=== PATIENT | female | born 1995 | race Caucasian/White ===

== ENCOUNTER 2022-03-02 16:18 | Outpatient (REF) | payer BC, SELFPAY ==
[2022-03-02 21:39] LABS: HCT 44.3 % (36.0-46.0); HGB 13.5 g/dL (11.2-15.7); MCHC 30.5 % (32.0-36.0); MCV 82 fL (80-95); MPV 9.8 fL (8.0-11.0); Platelet Count 367 10^3/uL (130-400); RDW-SD 41.7 fL; WBC 10.49 10^3/uL (4.4-10.8)
[2022-03-02 22:00] LABS: ALT 27 U/L (14-59); AST 26 U/L (15-37); Alkaline Phosphatase 82 U/L (46-116); Anion Gap 6.9 mmol/L (3-11); BUN 11 mg/dL (7-18); Bilirubin, Total 0.2 mg/dL (0.2-1.0); CO2 32.1 mmol/L (21.0-32.0); CREATININE 0.8 mg/dL (0.55-1.02); Calcium 9.1 mg/dL (8.5-10.1); Calculated LDL 127 mg/dL (<100); Chloride 102 mmol/L (98-107); Cholesterol 209 mg/dL (<200); Estimated GFR 104.15 (mL/min/1.73m2); Glucose 92 mg/dL (74-106); HDL Cholesterol 42 mg/dL (40-60); Potassium 3.8 mmol/L (3.5-5.1); Sodium 141 mmol/L (136-145); TSH (W/Ref FT4) 1.45 uIU/mL (0.36-3.74); Total Protein 8.6 g/dL (6.4-8.2); Triglyceride 201 mg/dL (<150)
[2022-03-02 22:30] LABS: Hemoglobin A1C 5.9 % (<5.7)
== END 2022-03-02 16:19 | disposition home or self-care (01) ==
LOC: NCHCN 16:18
PROVIDERS: Visit Provider Registered Nurse
DX: F41.8 Other specified anxiety disorders (principal); F32.89 Other specified depressive episodes; R53.83 Other fatigue; E66.8 Other obesity; R79.89 Other specified abnormal findings of blood chemistry; E55.9 Vitamin D deficiency, unspecified
CPT/HCPCS: 80053; 80061; 82306; 85027; 83036; 84443

== ENCOUNTER 2022-06-22 15:31 | Outpatient (REF) | payer BC, SELFPAY ==
--- OUTSIDE RECORDS SUMMARY | 2022-06-22 15:33 | XMS_ITS | CCD ---
Author Name Unknown Address [address] [place] [address] [id number] Organization Unknown Address [address] [place] [address] [id number] Care Team Providers Care Tugboat Dispatcher Name Role Phone SHLOMO PATEL Attending Physician [phone] NEREIDA GALARZA Er Physician 3 [phone] ALONZO Guadarrama Registered Nurse [phone] Vital Signs Vital Sign Value Unit Date/Time Recent/Initial ? BMI (Body Mass Index) 53.52 kg/m^2 02/27/2021 19: 42 Initial VS Weight Measured 265 lbs 02/27/2021 19:42 Ini tial VS Height 59 in 02/27/2021 19:42 Initial VS BSA (Body Surface Area) 2.24 m^2 02/27/2021 1 9:42 Initial VS BP Systolic 177 mmHg 02/27/2021 19:42 Initial VS BP Diastolic 101 mmHg 02/27/2021 19:42 Initia l VS Respiratory Rate 18 bpm 02/27/2021 19:42 In itial VS Heart Rate 119 bpm 02/27/2021 19:42 Initial VS O2 % BldC Oximetry 93 % 02/27/2021 19:42 Initial VS Body Temperature 36.3 degrees 02/27/2021 19:42 In itial VS Allergies Allergy Code Allergy Type Reaction Status CEFAZOLIN 2180 Drug allergy Active Procedures Unknown or Not Available. History of Immunizations Unknown or Not Available. Problems Unknown or Not Available. Results Unknown or Not Available. Active Medications Medications Administered During Visit Medication Dose Units Frequency Route Date/Time of Last Dose ER-HYDROCODONE/ACET 6 PACK: 5MG/325MG 5 EA PRN Q6H PO 02/27/2021 20:1 9 Encounters Encounter Diagnosis Diagnosis Code Start Date Lower back injury [id number] 02/27/2021 Social History Smoking Status Code Start Date End Date Never smoker [id number] Patient Decision Aids Unknown or Not Available. Discharge Instructions You were admitted to [facility] on 02/27/2021 19:26 with a principal diagnosis of Unspecified injury of lower back, initial encounter You were discharged from [facility] on 02/27/2021 20:24 Should you have any questions prior to discharge, please contact a member of your healthcare team. If you have left the hospital and have any questions, please contact your primary care physician. Chief Complaint and Reason For Visit Chief Complaint Date of Onset TAILBONE INJURY Function Status Unknown or Not Available. Plan of Care Unknown or Not Available. Referral/Transition of Care Unknown or Not Available.
--- OUTSIDE RECORDS SUMMARY | 2022-06-22 15:33 | XMS_ITS | CCD ---
Author Name Unknown Address [address] [place] [address] [id number] Organization Unknown Address [address] [place] [address] [id number] Care Team Providers Care Parachute Folder Name Role Phone GASTON BEASLEY Attending Physician [phone] Vital Signs Unknown or Not Available. Allergies Allergy Code Allergy Type Reaction Status CEFAZOLIN 2180 Drug allergy Active Procedures Unknown or Not Available. History of Immunizations Unknown or Not Available. Problems Unknown or Not Available. Results Unknown or Not Available. Active Medications Unknown or Not Available. Medications Administered During Visit Unknown or Not Available. Encounters Encounter Diagnosis Diagnosis Code Start Date Snoring [id number] 06/01/2022 Social History Smoking Status Code Start Date End Date Never smoker [id number] Patient Decision Aids Unknown or Not Available. Discharge Instructions You were admitted to [facility] on 06/01/2022 10:06 with a principal diagnosis of Snoring You were discharged from [facility] on 06/01/2022 10:06 Should you have any questions prior to discharge, please contact a member of your healthcare team. If you have left the hospital and have any questions, please contact your primary care physician. Chief Complaint and Reason For Visit Unknown or Not Available. Function Status Unknown or Not Available. Plan of Care Unknown or Not Available. Referral/Transition of Care Unknown or Not Available.
--- OUTSIDE RECORDS SUMMARY | 2022-06-22 15:33 | XMS_ITS | Continuity of Care Document ---
Author Name [facility] Address [address] [place] [address] Organization [facility] Address [address] [place] [address] Care Team Providers Care Swiss Type Screw Machine Operator Name Role Phone PCP, Not Given Primary Care Physician Unavailab le Allergies, Adverse Reactions, Alerts Allergen Type Severity Reaction Last Updated Verified Status cefazolin Allergy vomiting March 12, 2018 Y Act julee Medications Active Medications Medication Dose Units Route Sig Qty Days Start Date St atus Sertraline December 17 18 Active Spironolactone December Active Discontinued Medications Medication Dose Units Route Sig Qty Days Start Date Di scontinued Date Status Amoxicillin-Po t Clavulanate 1 TAB ORAL TWICE A DAY 30 12March 12, 2018 March 22, 2018 Discontinued Problem List Inactive/Resolved Problems Medical Problem Onset Date Status Acute maxillary sinusitis Inacti ve Concussion Inactive Procedures No known history of procedures. Relevant Diagnostic Tests and/or Laboratory Data No known relevant diagnostic tests, laboratory data, and/or discharge summary. Advance Directives Advance Directive Response Recorded Date/ Time Do we have a copy on file here at [facility]? No December 17, 2017 2:06pm Does patient have an Advanced Directive? No December 17, 2017 2:06pm Pt has a Living Will? No December 17, 2017 2:06pm Pt has a Power of Manager Concrete? No Deco 2017 2:06pm Hospital Discharge Instructions Additional Discharge Instructions -Take antibiotic twice a day for 10 days. -Continue nasal mist/spray for comfort. -Continue humidifier. -Sudafed as needed for congestion. -Take probiotic or eat yogurt to help re-establish healthy bacteria in GI tract. -If no improvement following antibiotic, please see PCP as you may need ENT referral for chronic sinusitis. Instruction/Education Provided Sinusitis , Adult (DC) Hospital Discharge Medications Medication Dose Units Route Sig Qty Days Order Date Status Ins tructions Sertraline Octob er 2017 Active Spironolactone O ctober 2017 Active Amoxicillin-Pot Clavulanate 1 TAB ORAL TWICE A DAY 20 10 March 12, 2018 Discontinued Encounters Encounter Facility Location Admit/Visit Date Discharge/Departure Date Attending Provider Departed Emergency [facility] March 12, 2018 9:10am March 12, 2018 9:46am Departed Emergency [facility] December 17, 2017 2:01pm December 17, 2017 2:37pm Functional Status No known functional status. Immunizations No known immunizations. Payers Payer Name Policy Type Covered Green Party Covered Green Party Id Relationship Subscriber Subscriber Id COMM UNLISTED INSURANCE Commercial JOSÉ DENNIS [id number] Self/Same as Patient JOSÉ DENNIS [id number] [facility] Commercial [id number] Self/Same as Patient [id number] SELF PAY Personal Plan of Care Instructions Sinusitis, Adult (DC) Social History Query Response Start Date Stop Date Smoking Status Never smoker Vital Signs Vital Reading Result Reference Range Collection Date/Time Height 5 ft March 12 9:15am Weight 113.398 kg March 12 9:15am Temperature 97.8 F 97.6 F-99.6 F March 12 018 9:15am Pulse 92 BPM 60-100 March 12 9:15am Respiration 18 RPM 12-24 March 12 9:15am Pulse Oximetry 99 % 95-100 March 12, 2018 9:15am Blood Pressure Systolic 102 100-140 Dece mb2017 9:15am Blood Pressure Diastolic 78 50-85 Dec 2017 9:15am Body Mass Index 48.8 March 12, 2018 9:15am
--- OUTSIDE RECORDS SUMMARY | 2022-06-22 15:33 | XMS_ITS | Continuity of Care Document ---
Author Name Unknown Address [address] [place] [address] Phone Organization [facility] Address [address] [place] [address] Phone Care Team Providers Care Porter Marina Name Role Phone PCP, Not Given Primary Care Provider Unavailabl e Allergies, Adverse Reactions, Alerts Allergen Type Severity Reaction Last Updated Verified Status cefazolin Allergy vomiting September 10, 2019 12:39pm Yes Active cefprozil Adverse Reaction Unknown September 10, 2019 12:39 pm Yes Active Medications Medication Status Dose Units Route Sig Qty Days Start Date End Date Instructions Sertraline Active TABLET Octobe r 2017 2:11pm Spironolactone Active TABLET Oc tober 2017 2:11pm Amoxicillin-Po t Clavulanate Discontinu ed 1 TAB PO TWICE A DAY 20 March 12, 2018 9:32am March 22, 2018 12:04am Buspirone Active MG TABLET September 10, 2019 12:39pm Omeprazole Active September 10, 2019 12:39pm Amoxicillin-Po t Clavulanate Discontinu ed 1 TAB PO TWICE A DAY 20 April 05, 2018 5:56pm Februar y 2018 12:05am Problems Active Problems Medical Problem Onset Date Status Urinary tract infection December 20, 2013 Activ e Hearing loss secondary to cerumen impaction Active Inactive/Resolved Problems Medical Problem Onset Date Status Acute maxillary sinusitis Resolv ed Concussion Resolved Pyelonephritis Resolved Advance Directives Advance Directive Response Recorded Date/ Time Does patient have an Advanced Directive? No December 17, 2017 2:06pm Do we have a copy on file here at [facility]? No December 17, 2017 2:06pm Pt has a Living Will? No December 2:06pm Do we have a copy on file here at [facility]? No December 17, 2017 2:06pm Pt has a Power of Nail Maker? No Octo 2017 2:06pm Do we have a copy on file here at [facility]? No December 17, 2017 2:06pm Encounters Encounter Location(s) Arrival/Admit Date Discharge/Depart Date Provider(s) Departed Emergency [facility] Urgent [facility] September 10, 2019 12:03pm September 10, 2019 12:54pm null Assessments No Assessments Information Available Functional Status No Functional Status information available Goals Goals may be documented in an alternate section. Mental Status No Mental Status Information Available Medical Equipment No Medical Equipment Information available Insurance Providers Guarantor Mechelle Romero Address [address] [facility] [address] Contact Info. Home Phone: Payer Policy Id Coverage Id Subscriber's Name Subscriber Id Effective Date Expiration Date COMM UNLISTED INSURANCE [id number] MECHELLE ROMERO [id number] [employer] [place] [id number] Mechelle Romero [id number] [facility] [id number] Mechelle Romero [id number] SELF PAY Self N/A Plan of Treatment Future Tests Future scheduled test information is unavailable Pending Tests Pending diagnostic test information is unavailable Future Visits Future appointment information is unavailable Referrals to Other Providers Reason for Referral Referral Start Date Provider Provider Contact Information Provider Address Given Not Future Procedures Future procedure information is unavailable Future Medications Future medication information is unavailable Patient Instructions COVID 19 General Instruction s- decrease the spread of coronavirus ([facility]) Social History Smoking Status Status Date of Observation Never smoked tobacco (finding) August 12:48pm Observation Status Observation Response Date of Response Alcohol Use Yes September 10, 2019 12:48pm alcohol intake frequency a few times a week September 10, 2019 12:48pm substance use type does not use September 09 12:48pm Smoking Status Never smoker September 10, 2019 12:48pm Assigned Sex Female Vital Signs Vital Reading Result Reference Range Collection Date/Time Height 60 [in_i] September 10, 2019 12:39pm Weight 113.39 kg September 10, 2019 12:39pm Body Temperature 98.4 [degF] 97.6-99.6 September 10, 2019 12:39pm Heart Rate 82 /min 60-100 September 10, 2019 12:39pm Respiratory rate 14 /min 12-24 September 10, 2019 12:39pm Oxygen saturation by Pulse oximetry 99 % 95-100 September 10, 2019 12:3 9pm BP Systolic 124 mm[Hg] 100-140 September 10, 2019 12:39pm BP Diastolic 80 mm[Hg] 50-85 September 10, 2019 12:39pm BMI (Body Mass Index) 48.8 kg/m2 August 132019 12:39pm
--- OUTSIDE RECORDS SUMMARY | 2022-06-22 15:33 | XMS_ITS | Continuity of Care Document ---
Author Name [facility] Address [address] [place] [address] Organization [facility] Address [address] [place] [address] Care Team Providers Care Hand Engraver Name Role Phone PCP, Not Given Primary Care Physician Unavailab le Allergies, Adverse Reactions, Alerts Allergen Type Severity Reaction Last Updated Verified Status cefazolin Allergy vomiting April 05, 2018 Y Acti ve Medications Active Medications Medication Dose Units Route Sig Qty Days Start Date St atus Sertraline December 17 18 Active Spironolactone December Active Amoxicillin-Pot Clavulanate 1 TAB ORAL TWICE A DAY 30 12April 05, 2018 Active Discontinued Medications Medication Dose Units Route Sig Qty Days Start Date Di scontinued Date Status Amoxicillin-Po t Clavulanate 1 TAB ORAL TWICE A DAY 30 12March 12, 2018 March 22, 2018 Discontinued Problem List Active Problems Medical Problem Onset Date Status Pyelonephritis Active Inactive/Resolved Problems Medical Problem Onset Date Status Acute maxillary sinusitis Inacti ve Concussion Inactive Procedures No known history of procedures. Relevant Diagnostic Tests and/or Laboratory Data No known relevant diagnostic tests, laboratory data, and/or discharge summary. Advance Directives Advance Directive Response Recorded Date/ Time Do we [place] a copy [place] [facility] No December 17, 2017 2:06pm Does patient have an Advanced Directive? No December 17, 2017 2:06pm Pt has a Living Will? No December 17, 2017 2:06pm Pt has a Power of Box Inspector? No Octo 2017 2:06pm Hospital Discharge Instructions Additional Discharge Instructions Take t he antibiotic as prescribed. Complete the entire course even if feeling better in a few days. Drink plenty of fluids. Ibuprofen/tylenol as needed for discomfort. Warm compresses for discomfort. If worsening or not improving after completing the antibiotic f/u with your PCP or return to clinic. If any acute worsening such as severe pain, fevers, or vomiting go to the emergency room. No Instructions/Education Pr ovided Hospital Discharge Medications Medication Dose Units Route Sig Qty Days Order Date Status Ins tructions Sertraline Octob er 2017 Active Spironolactone O ctober 2017 Active Amoxicillin-Pot Clavulanate 1 TAB ORAL TWICE A DAY 30 12March 12, 2018 Discontinued Amoxicillin-Pot Clavulanate 1 TAB ORAL TWICE A DAY 20 April 05, 2018 Active Encounters Encounter Facility Location Admit/Visit Date Discharge/Departure Date Attending Provider Departed Emergency [facility] April 05, 2018 4:16pm April 05, 2018 6:00pm Departed Emergency [facility] March 12, 2018 9:10am March 12, 2018 9:46am Departed Emergency [facility] December 17, 2017 2:01pm December 17, 2017 2:37pm Functional Status No known functional status. Immunizations No known immunizations. Payers Payer Name Policy Type Covered Green Party Covered Green Party Id Relationship Subscriber Subscriber Id COMM UNLISTED INSURANCE Commercial MECHELLE DENNIS [id number] Self/Same as Patient MECHELLE DENNIS [id number] [employer] Mechelle Dennis [id number] Self/Same as Patient Mechelle Dennis [id number] SELF PAY Personal Plan of Care No Known Plan of Care Information Social History Query Response Start Date Stop Date Smoking Status Never smoker Vital Signs Vital Reading Result Reference Range Collection Date/Time Height 5 ft March 12 9:15am Weight 113.398 kg April 05 9 4:23pm Temperature 97.8 F 97.6 F-99.6 F April 05 4:23pm Pulse 82 BPM 60-100 April 05 4:23pm Respiration 20 RPM -April 05 4:23pm Pulse Oximetry 99 % 95-100 March 12, 2018 9:15am Blood Pressure Systolic 134 100-140 Blair juarez 2018 4:23pm Blood Pressure Diastolic 80 50-85 Brendon uary 2018 4:23pm Body Mass Index 48.8 March 12, 2018 9:15am
--- OUTSIDE RECORDS SUMMARY | 2022-06-22 15:33 | XMS_ITS | Continuity of Care Document ---
Author Name Unknown Organization [facility] Address [address] [place] [address] Phone Care Team Providers Care Financial Management Name Role Phone Jazmyn Barron APRN Unavailable Unavaila ble Allergies, Adverse Reactions, Alerts Substance Reaction Status Criticality cefazolin fever Active No Information Medications Medication Instructions Dosage Effective Dates (start - stop) Status Comments sertraline 100 mg tablet take 2 tablet b y oral route every day for anxiety and depression 200 MG - Active buspirone 10 mg tablet take 2 tablet by oral route every day for anxiety 20 MG - Active hydrochlorothiazide 12.5 mg capsule take 1 capsule by oral route every day 12.5 MG - Active omeprazole 20 mg capsule,delayed release take 1 capsule by oral route every day before a meal - Active Onexton 1.2 % (1 % base)-3.75 % topical gel apply by topical route every day a pea-sized amount to cover areas of face with thin layer 0.00 - Active In place of Benzaclin. Please let me know if another formulation is covered by insurance Omnaris 50 mcg nasal spray spray 2 spray by intranasal route every day in each nostril 100 MCG - Active spironolactone 50 mg tablet take 1 tablet by oral route 2 times every day 50 MG - Active [facility] Ana Allergy 180 mg tablet take 1 tablet by oral route every day 180 MG - Active Procedures Procedure Date Telemed OFFICE/OUTPATIENT VISIT, EST 992 13 Telehealth patient not reached Telehealth patient not reached Telehealth patient not reached 20 Telemed OFFICE/OUTPATIENT VISIT, EST 992 13 OFFICE/OUTPATIENT VISIT, EST Psychotherapy, 30 Minutes W/ E&m 2019 OFFICE/OUTPATIENT VISIT, EST Psychotherapy, 30 Minutes W/ E&m 2018 OFFICE/OUTPATIENT VISIT, EST Psychotherapy, 30 Minutes W/ E&m 2018 Offic/outpt E&m Estab Low-mod 9 Psychotherapy, 30 Minutes W/ E&m 2018 Offic/outpt E&m Estab Low-mod 9 Preven Meds E&m Estab Pt; 18-3 19 OFFICE/OUTPATIENT VISIT, EST Routine Venipuncture Transferase; Alanine Amino Transferase; Aspartate Amino Potassium; Serum Sodium; Serum GLYCOSYLATED HEMOGLOBIN TEST Collecton Capillary Blood Spec Routine Venipuncture Urea Nitro; Mitch Creatinine; Bld Electrolyte Panel OFFICE/OUTPATIENT VISIT, EST OFFICE/OUTPATIENT VISIT, EST OFFICE/OUTPATIENT VISIT, EST Offic/outpt E&m Estab Low-mod 8 Psychotherapy, 30 Minutes W/ E&m 2017 Offic/outpt E&m Estab Low-mod 8 Psychotherapy, 30 Minutes W/ E&m 2017 Offic/outpt E&m Estab Low-mod 8 Psychotherapy, 30 Minutes W/ E&m 2017 Offic/outpt E&m Estab Low-mod 8 Psychotherapy, 30 Minutes W/ E&m 2017 OFFICE/OUTPATIENT VISIT, EST Offic/outpt E&m Estab Low-mod 8 Offic/outpt E&m Estab Low-mod 8 Psychotherapy, 30 Minutes W/ E&m 2017 Offic/outpt E&m Estab Low-mod 8 Psychotherapy, 30 Minutes W/ E&m 2017 Offic/outpt E&m Estab Low-mod 7 Offic/outpt E&m Estab Low-mod 7 Psychotherapy, 30 Minutes W/ E&m 2016 Collecton Capillary Blood Spec 17 Glu; Bld Reagent Strip GLYCOSYLATED HEMOGLOBIN TEST OFFICE/OUTPATIENT VISIT, EST THER/PROPH/DIAG INJ, SC/IM Offic/outpt E&m Estab Low-mod 7 Medroxyprogesterone Acetate-1mg 017 Offic/outpt E&m Estab Low-mod 7 Psychotherapy, 30 Minutes W/ E&m 2016 Offic/outpt E&m Estab Low-mod 7 Psychotherapy, 30 Minutes W/ E&m 2016 Immuniz Admin; 1/combo Vacc/to 17 TDAP VACCINE >7 IM Preven Meds E&m Estab Pt; 18-3 17 Glu; Mitch Routine Venipuncture Phosphatase Alkaline Creatinine; Bld Urea Nitro; Mitch Transferase; Aspartate Amino Transferase; Alanine Amino Offic/outpt E&m Estab Low-mod 7 Offic/outpt E&m Estab Low-mod 7 Offic/outpt E&m Estab Low-mod 7 Offic/outpt E&m Estab Low-mod 7 Offic/outpt E&m Estab Low-mod 7 OFFICE/OUTPATIENT VISIT, EST Offic/outpt E&m Estab Low-mod 7 Psychotherapy, 30 Minutes W/ E&m Brendon-16- 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 OFFICE/OUTPATIENT VISIT, EST Agt-immunassay Dir Obs; Strep 6 Cult Bacterial Definit; Other 6 Offic/outpt E&m Estab Low-mod 6 Offic/outpt E&m Estab Low-mod 6 Offic/outpt E&m Estab Low-mod 6 Glu; Mitch Routine Venipuncture Complete Cbc, Automated Thyroid Stim Hormone OFFICE/OUTPATIENT VISIT, EST THER/PROPH/DIAG INJ, SC/IM Medroxyprogesterone Acetate-1mg 016 Offic/outpt E&m Estab Low-mod 6 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 Follow Up THER/PROPH/DIAG INJ, SC/IM Medroxyprogesterone Acetate-1mg 016 Offic/outpt E&m Estab Low-mod 6 Title I Teacher Follow Up Offic/outpt E&m Estab Low-mod 6 Title I Teacher New Patient Offic/outpt E&m Estab Low-mod 6 Psychiatric Diag Eval With Medical Medroxyprogesterone Acetate-1mg 016 THER/PROPH/DIAG INJ, SC/IM Offic/outpt E&m New Low-mod 16 Advance Directives Directive Yes / No Effective Date File Name No Information Encounters Encounter Description Practice Location Reason(s) For Visit Diagnoses Date Provider Providers Copied on Encounter [facility] , [address] [place] [address], [id number], [place] tel:[phone] [facility] No Information 2 Anderson Eldridge. [address] [place] [address], [id number], [place]. tel:[phone] [facility] , [address] [place] [address], [id number], tel:[phone] [facility] No Information 1 Stan Alfonso. [address] [place] [address], [facility], [place]. tel:[phone] [place] [address], [id number], tel:[phone] [facility] No Information 1 Stan Alfonso. [address] [place] [address], [facility], [place]. tel:[phone] [place] [address], [id number], tel:[phone] [facility] anxiety (chief complaint) Anxiety disorder, unspecified 1 Stan Alfonso. [address] [place] [address], [facility], [place]. tel:[phone] [place] [address], [address] [place] [address], tel:[phone] [facility] anxiety (chief complaint) Anxiety disorder, unspecified 1 Stan Alfonso. [address] [place] [address], [facility], [place]. tel:[phone] [place] [address], [address] [place] [address], tel:[phone] [facility] anxiety (chief complaint) Anxiety disorder, unspecified 0 Stan Alfonso. [address] [place] [address], [facility], [place]. tel:[phone] [place] [address], [id number], [place] tel:[phone] [facility] Counseling, unspecified 0 Lucian Pearce. [address] [place] [address], [facility], [place]. tel:[phone] [place] [address], [address] [place] [address], tel:[phone] [facility] No Information 0 Nurse Office. [address] [place] [address], [facility], . tel:[phone] [facility] , [address] [place] [address], [address] [place] [address], tel:[phone] [facility] anxiety (chief complaint) Anxiety disorder, unspecified 0 Stan Alfonso. [address] [place] [address], [facility], . tel:[phone] OFFICE/OUTPA TIENT VISIT, [address], [address] [place] [address], tel:[phone] [facility] anxiety (chief complaint) Anxiety disorder, unspecifiedEp isode of recurrent major depressive disorder, unspecified depression episode severity 0 Stan Alfonso. [address] [place] [address], [facility], . tel:[phone] OFFICE/OUTPA TIENT VISIT, [address], [address] [place] [address], tel:[phone] [facility] anxiety (chief complaint) Anxiety disorder, unspecifiedDe pression, unspecified depression type 9 Stan Alfonso. [address] [place] [address], [facility], . tel:[phone] OFFICE/OUTPA TIENT VISIT, [facility] , [address] [place] [address], [address] [place] [address], tel:[phone] [facility] anxiety (chief complaint) Anxiety disorder, unspecified 9 Stan Alfonso. [address] [place] [address], [facility], . tel:[phone] Offic/outpt E&m Estab Low-[address], [address] [place] [address], tel:[phone] [facility] anxiety (chief complaint) Anxiety disorder, unspecified 9 Stan Alfonso. [address] [place] [address], [facility], . tel:[phone] Offic/outpt E&m Estab Low-mod [facility] , [address] [place] [address], [id number], tel:[phone] [facility] hypertension (chief complaint)obe sity (chief complaint) Essential (primary) hypertensionA cne vulgarisGastr oesophageal reflux disease without esophagitisBo dy mass index (BMI) 50-59.9 , adult 9 [facility]. [address] [place] [address], [facility], . tel:[phone] Preven Meds E&m Estab Pt; 18-[address], [address] [place] [address], tel:[phone] [facility] Preventive exam (chief complaint)aci d reflux (chief complaint)acn e (chief complaint) Encntr for general adult medical exam w/o abnormal findingsFatty liverAcne vulgarisCompu lsive skin pickingHTN (hypertension ), benignDiabete s mellitus screeningGast roesophageal reflux disease without esophagitis 9 [facility]. [address] [place] [address], [facility], . tel:[phone] OFFICE/OUTPA TIENT VISIT, [facility] , [address] [place] [address], [address] [place] [address], [place] tel:[phone] [facility] Sinus symptoms (chief complaint)UTI (chief complaint)sin us symptoms continued (chief complaint) Sinus congestionHTN (hypertension ), benign 9 [facility]. [address] [place] [address], [facility], . tel:[phone] OFFICE/OUTPA TIENT VISIT, [facility] , [address] [place] [address], [address] [place] [address], [place] tel:[phone] [facility] Follow Up of Cold symptoms (chief complaint) Sinus congestion 9 Ciaran Orellana. [address] [place] [address], [facility], [place]. tel:[phone] OFFICE/OUTPA TIENT VISIT, [facility] , [address] [place] [address], [address] [place] [address], tel:[phone] [facility] Cold symptoms (chief complaint) Sinus congestion 9 Lucian Pearce. [address] [place] [address], [facility], [place]. tel:[phone] Offic/outpt E&m [facility] , [address] [place] [address], [address] [place] [address], tel:[phone] [facility] anxiety (chief complaint) Anxiety disorder, unspecified 8 Stan Alfonso. [address] [place] [address], [facility], [place]. tel:[phone] Offic/outpt E&m Estab [facility] , [address] [place] [address], [address] [place] [address], [place] tel:[phone] [facility] anxiety (chief complaint) Anxiety disorder, unspecified 8 Stan Alfonso. [address] [place] [address], [facility], . tel:[phone] Offic/outpt E&m Estab [facility] , [address] [place] [address], [address] [place] [address], [place] tel:[phone] [facility] anxiety (chief complaint) Anxiety disorder, unspecified 8 Stan Alfonso. [address] [place] [address], [facility], [place]. tel:[phone] Offic/outpt E&m Estab [facility] , [address] [place] [address], [address] [place] [address], [place] tel:[phone] [facility] anxiety (chief complaint) Anxiety disorder, unspecified 8 Stan Alfonso. [address] [place] [address], [facility], . tel:[phone] OFFICE/OUTPA TIENT VISIT, [facility] , [address] [place] [address], [address] [place] [address], tel:[phone] [facility] Runny nose (FP) (chief complaint) Sinus congestionEle vated BP without diagnosis of hypertension 8 Ciaran Ruizen. [address] [place] [address], [facility], [place]. tel:[phone] Offic/outpt E&m [address], [address] [place] [address], tel:[phone] [facility] depression (chief complaint) Major depressv disorder, recurrent severe w/o psych featuresAnxie ty 8 Stan Alfonso. [address] [place] [address], [facility], . tel:[phone] Offic/outpt E&m [address], [address] [place] [address], tel:[phone] [facility] anxiety (chief complaint) Anxiety disorder, unspecified 8 Stan Alfonso. [address] [place] [address], [facility], . tel:[phone] Offic/outpt E&m [facility] , [address] [place] [address], [address] [place] [address], [place] tel:[phone] [facility] depression (chief complaint) Major depressv disorder, recurrent severe w/o psych featuresAnxie ty 8 Stan Alfonso. [address] [place] [address], [facility], . tel:[phone] Offic/outpt E&m Estab [facility] , [address] [place] [address], [address] [place] [address], [place] tel:[phone] [facility] anxiety (chief complaint) Anxiety disorder, unspecified 7 Stan Alfonso. [address] [place] [address], [facility], [place]. tel:[phone] Offic/outpt E&m [facility] , [address] [place] [address], [id number], tel:[phone] [facility] depression (chief complaint) Major depressv disorder, recurrent severe w/o psych features 0 7 Stan Alfonso. [address] [place] [address], [facility], [place]. tel:[phone] OFFICE/OUTPA TIENT VISIT, [facility] , [address] [place] [address], [id number], tel:[phone] [facility] cough (chief complaint) Acute maxillary sinusitis, unspecifiedCo ughAcnePredia pa 7 Kostas Cartagena. [address] [place] [address], [facility], . tel:[phone] Offic/outpt E&m [facility] , [address] [place] [address], [id number], [place] tel:[phone] [facility] contraceptive management (chief complaint) Encounter for contraceptive management, unspecifiedAm enorrhea Fu Wilfredo. [address], [place], [place], [employer], [place]. tel:[phone] Offic/outpt E&m [facility] , [address] [place] [address], [id number], [place] tel:[phone] [facility] anxiety (chief complaint) Anxiety disorder, unspecified 7 Stan Alfonso. [address] [place] [address], [facility], . tel:[phone] Offic/outpt E&m [facility] , [address] [place] [address], [id number], tel:[phone] [facility] anxiety (chief complaint) Anxiety disorder, unspecified Jun- 7 Stan Alfonso. [address] [place] [address], [facility], [place]. tel:[phone] Preven Meds E&m Estab Pt; 18-3 [facility] , [address] [place] [address], [id number], tel:[phone] [facility] Preventive exam (chief complaint) Obesity, unspecifiedEn cntr for general adult medical exam w/o abnormal findings Jun-0 7 Fu Wilfredo. [address] [facility], [place], [place], [employer], [place]. tel:[phone] Referring Provider: Aug, [address] [place] [address], [place], [place], [employer]. tel:[phone] Offic/outpt E&m Estab [facility] , [address] [place] [address], [address] [place] [address], [place] tel:[phone] [facility] Follow Up of Abdominal pain (chief complaint) Abdominal painMorbid (severe) obesity due to excess caloriesNASH 7 Fu Wilfredo. [address], [place] [address], [place], [place], [employer], [place]. tel:[phone] Offic/outpt E&m [facility] , [address] [place] [address], [id number], [place] tel:[phone] [facility] depression (chief complaint) Major depressv disorder, recurrent severe w/o psych features May- 2 7 Stan Alfonso. [address] [place] [address], [id number], [place]. tel:[phone] Offic/outpt E&m Estab [facility] , [address] [place] [address], [address] [place] [address], [place] tel:[phone] [facility] contraceptive management (chief complaint) Irregular menstruation, unspecified May- 6-201 7 Fu Wilfredo. [address], [place] [address], [place], [place], [employer], [place]. tel:[phone] Offic/outpt E&m Estab [facility] , [address] [place] [address], [id number], tel:[phone] [facility] Eye problems (FP) (chief complaint) Acute rhinitisViral conjunctiviti s May-0 3- 7 Pablo Lebron. [address] [place] [address], [facility], [place]. tel:[phone] Offic/outpt E&m Estab [facility] , [address] [place] [address], [address] [place] [address], [place] tel:[phone] [facility] Abdominal pain (chief complaint) Abdominal pain May-0 2- 7 Fu Wilfredo. [address], [place] [address], [place], [place], [employer], [place]. tel:[phone] [facility] , [address] [place] [address], [id number], [place] tel:[phone] [facility] No Information 0 7 Fu Wilfredo. [address], [place] [address], [place], [employer], [place]. tel:[phone] OFFICE/OUTPA TIENT VISIT, [facility] , [address] [place] [address], [id number], tel:[phone] [facility] pre op pe (chief complaint)wri st pain (chief complaint) Carpal tunnel syndrome of left armEncounter for preprocedural cardiovascula r examination 7 Pablo Lebron. [address] [place] [address], [facility], [place]. tel:[phone] Offic/outpt E&m Estab [facility] , [address] [place] [address], [address] [place] [address], [place] tel:[phone] [facility] anxiety (chief complaint) Anxiety disorder, unspecified 7 Stan Alfonso. [address] [place] [address], [facility], . tel:[phone] [facility] , [address] [place] [address], [id number], tel:[phone] [facility] Dietary counseling and surveillance 7 Specialist [facility]. [address] [place] [address], [facility], [place]. tel:[phone] OFFICE/OUTPA TIENT VISIT, EST [facility] , [address] [place] [address], [address] [place] [address], [place] tel:[phone] [facility] pre [facility] PE (chief complaint)wri st pain (chief complaint)OCP (chief complaint) Carpal tunnel syndrome, right upper limbMenorrhag iaPharyngitis 6 Lanie Huitron [address] [place] [address], [id number], [place]. tel:[phone] [facility] , [address] [place] [address], [id number], [place] tel:[phone] [facility] No Information 6 Lanie Huitron [address] [place] [address], [id number], [place]. tel:[phone] Offic/outpt E&m Estab [address], [address] [place] [address], tel:[phone] [facility] Eye problems (FP) (chief complaint) Ocular pain, left eye Nov- 6 Pablo Lebron. [address] [place] [address], [facility], [place]. tel:[phone] Offic/outpt E&m Estab [facility] , [address] [place] [address], [id number], [place] tel:[phone] [facility] Discuss lyme results (chief complaint)car pal tunnel syndrome (chief complaint) Lyme diseaseAcneCa rpal tunnel syndrome, unspecified upper limb 6 Lanie Esquivel. [address] [place], [place], [id number], [place]. tel:[phone] Offic/outpt E&m Estab [facility] , [address] [place] [address], [id number], tel:[phone] [facility] Lyme Disease (chief complaint) Fatigue 6 Lanie Esquivel. [address] [place], [place], [id number], [place]. tel:[phone] Referring Provider: Sierra Dela Cruz , [address] [place] [address], [id number]. tel:[phone] OFFICE/OUTPA TIENT VISIT, [facility] , [address] [place] [address], [id number], tel:[phone] [facility] Diarrhea (FP) (chief complaint)Dep o Injection (chief complaint) Encounter for contraceptive managementDia rrhea 6 Yan Toure. [address] [place], [place], [facility], . tel:[phone] Offic/outpt E&m Estab [facility] , [address] [place] [address], [id number], [place] tel:[phone] [facility] anxiety (chief complaint) Anxiety disorder, unspecified 6 Stan Alfonso. [address] [place] [address], [facility], . tel:[phone] [facility] , [address] [place] [address], [id number], [place] tel:[phone] [facility] Hypertension 6 Specialist [facility]. [address] [place] [address], [facility], . tel:[phone] [facility] , [address] [place] [address], [address] [place] [address], [place] tel:[phone] [facility] Depo injection (chief complaint) Encounter for contraceptive management 6 Nurse Office. [address] [place] [address], [facility], [place]. tel:[phone] Referring Provider: Sierra Dela Cruz , [address] [place], [place], [id number]. tel:[phone] Offic/outpt E&m Estab [facility] , [address] [place] [address], [address] [place] [address], [place] tel:[phone] [facility] anxiety (chief complaint) Anxiety disorder, unspecified Apr-2 0-201 6 Stan Alfonso. [address] [place] [address], [facility], [place]. tel:[phone] [place] [address] , [address] [place] [address], [address] [place] [address], tel:[phone] [facility] Hypertension Jun- 6 Specialist [facility]. [address] [place] [address], [facility], [place]. tel:[phone] Offic/outpt E&m Estab [facility] , [address] [place] [address], [address] [place] [address], [place] tel:[phone] [facility] anxiety (chief complaint) Anxiety disorder, unspecified Mar-2 3-201 6 Stan Alfonso. [address] [place] [address], [facility], . tel:[phone] [place] [address], [address] [place] [address], [place] tel:[phone] [id number] [facility] Hypertension Mar-0 9-201 6 Specialist [facility]. [address] [place] [address], [facility], [place]. tel:[phone] Offic/outpt E&m Estab [facility] , [address] [place] [address], [address] [place] [address], [place] tel:[phone] [facility] Follow Up of Follow Up of Follow Up of hypertension (chief complaint)Acn e (chief complaint) Hypertension Mar-0 7-201 6 Zaidichristine Min. [address], [place], [facility] [facility], . tel:[phone] [facility] , [address] [place] [address], [id number], tel:[phone] [facility] depression (chief complaint) Major depressive disorder, single episode, unspecifiedAn xiety 6 Stan Alfonso. [address] [place] [address], [facility], . tel:[phone] [facility] , [address] [place] [address], [id number], tel:[phone] [facility]- Depo (chief complaint) Encounter for contraceptive management 6 Nurse Office. [address] [place] [address], [facility], . tel:[phone] Referring Provider: Sierra Dela Cruz , [address] [place] [address], [id number]. tel:[phone] [facility] , [address] [place] [address], [id number], tel:[phone] [facility] Depression 6 No Information Offic/outpt E&m New Low-mod 20 [facility] , [address] [place] [address], [id number], tel:[phone] [facility] Establish care (chief complaint)Acn e (chief complaint)dep ression (chief complaint)johnson d pain (chief complaint) AcneHypertens ionNeuropathy Depression 6 Dejuan Min. [address] [place] [address], [facility] [facility], . tel:[phone] Family History Family Member Type Diagnosis Age At Onset No Information Immunizations Vaccine Date Status Comments Influenza, Single Dose Syrin ge 2017 -2018 administered Source: Source Unspe cified Tdap administered Source: New Imm unization Record Influenza, injectable, trivalent, split virus, 4 years and older, Fluvirin administered Source: Other Provid er Influenza, injectable, trivalent, split virus, 4 years and older, Fluvirin administered Source: Other Provid er HPV, unspecified formulation administered Source: Other Provider HPV, unspecified formulation administered Source: Other Provider HPV (9-valent) administered Source: Other Provider Tdap administered Source: Other P azder Payers Payer name Insurance type Covered green party ID Authoriza tironak(s) Primary Care Plus Traditional [id number] [employer] Benefits [id number] Social History Type Description Quantity Date Captured Comments Alcohol Use Details Unknown Caffeine Use Details Unknown Tobacco Use Status No Information Smoking Status No Information Sex Female Chief Complaint And Reason For Visit No Information Plan Of Treatment Date Type Action Status Goal Lipid panel. Due on due Goal Lipid Panel. Due on due Goal HEPATITIS C AB TEST. Due on due Goal HIV-1 AG W/HIV-1 & HIV-2 AB. Due on due Goal INFLUENZA. Due on 9 due Goal ThinPrep Pap. Due on 2021 due Goal Chlamydia/GC Amplification. Due on due Goal BMI counseling d ocumented in Health Promotion Plan. Due on due Goal Dental Care. Due on due Goal HPV 9 #1 F due Goal Annual PE. Due on due Goal Depression screening. Due on due Goal Calcium; Tot. Due on 2021 due Goal creatinine. Due on due Goal CBC due Goal Electrolyte Panel. Due on due Goal Dental exam. Due on due Goal Electrocardiogram, complete (ECG). Due on due Goal Lipid panel. Due on due Goal ThinPrep Pap. Due on 2020 due Goal HEPATITIS C AB TEST. Due on due Goal Lipid Panel. Due on due Goal HIV-1 AG W/HIV-1 & HIV-2 AB. Due on due Goal creatinine. Due on due Goal Calcium; Tot. Due on 2020 due Goal Chlamydia/GC Amplification. Due on due Goal BMI counseling d ocumented in Health Promotion Plan. Due on due Goal Electrocardiogram, complete (ECG). Due on due Goal Electrolyte Panel. Due on due Goal CBC due Goal HPV 9 #1 F due Goal Dental Care. Due on due Goal Dental exam. Due on due Goal Depression screening. Due on due Goal Annual PE. Due on due Goal Chlamydia/GC Amplification. Due on due Goal CBC due Goal Electrocardiogram, complete (ECG). Due on due Goal Electrolyte Panel. Due on due Goal Calcium; Tot. Due on 2020 due Goal creatinine. Due on due Goal Dental exam. Due on due Goal HIV-1 AG W/HIV-1 & HIV-2 AB. Due on due Goal ThinPrep Pap. Due on 2020 due Goal HEPATITIS C AB TEST. Due on due Goal BMI counseling d ocumented in Health Promotion Plan. Due on due Goal HPV 9 #1 F due Goal Dental Care. Due on due Goal Depression screening. Due on due Goal Annual PE. Due on due Goal Lipid Panel. Due on due Goal Hematocrit due Goal Lipid panel. Due on due Goal Urinalysis. Due on due Goal HIV-1 AG W/HIV-1 & HIV-2 AB. Due on due Goal HEPATITIS C AB TEST. Due on due Goal ThinPrep Pap. Due on 2019 due Goal Chlamydia/GC Amplification. Due on due Goal creatinine. Due on due Goal Calcium; Tot. Due on 2019 due Goal Electrolyte Panel. Due on due Goal HPV 9 #1 F due Goal Dental exam. Due on due Goal Dental Care. Due on due Goal BMI counseling d ocumented in Health Promotion Plan. Due on due Goal CBC due Goal Electrocardiogram, complete (ECG). Due on due Goal Lipid panel. Due on due Goal Hematocrit due Goal Urinalysis. Due on due Goal Annual PE. Due on 1 due Goal Lipid Panel. Due on due Goal Annual PE. Due on 1 due Goal Depression Screening. Due on due Goal Depression screening. Due on due Goal Electrolyte Panel. Due on due Goal HPV 9 #1 F due Goal Lipid Panel. Due on due Goal Urinalysis. Due on due Goal Annual PE. Due on 0 due Goal creatinine. Due on due Goal Calcium; Tot. Due on 2019 due Goal Dental exam. Due on due Goal Dental Care. Due on due Goal Chlamydia/GC Amplification. Due on due Goal BMI counseling d ocumented in Health Promotion Plan. Due on due Goal CBC due Goal Electrocardiogram, complete (ECG). Due on due Goal Annual PE. Due on 0 due Goal Depression screening. Due on due Goal Lipid panel. Due on due Goal HIV-1 AG W/HIV-1 & HIV-2 AB. Due on due Goal HEPATITIS C AB TEST. Due on due Goal ThinPrep Pap. Due on 2019 due Goal Diabetes Screening. Due on due Goal Hematocrit due Goal Depression Screening. Due on due Goal Electrocardiogram, complete (ECG). Due on due Goal ThinPrep Pap. Due on 2019 due Goal Electrolyte Panel. Due on due Goal Dental Care. Due on due Goal HPV 9 #1 F due Goal HIV-1 AG W/HIV-1 & HIV-2 AB. Due on due Goal creatinine. Due on due Goal CBC due Goal Diabetes Screening. Due on due Goal Chlamydia/GC Amplification. Due on due Goal BMI counseling d ocumented in Health Promotion Plan. Due on due Goal Calcium; Tot. Due on 2019 due Goal Dental exam. Due on due Goal Dental Care. Due on due Goal HIV-1 AG W/HIV-1 & HIV-2 AB. Due on due Goal Chlamydia/GC Amplification. Due on due Goal Diabetes Screening. Due on due Goal BMI counseling d ocumented in Health Promotion Plan. Due on due Goal ThinPrep Pap. Due on 2019 due Goal Electrocardiogram, complete (ECG). Due on due Goal creatinine. Due on due Goal Electrolyte Panel. Due on due Goal Calcium; Tot. Due on 2019 due Goal CBC due Goal HPV 9 #1 F due Goal Dental exam. Due on due Goal Annual PE. Due on 1 due Goal Hematocrit due Goal Depression screening. Due on due Goal Annual PE. Due on 1 due Goal Depression Screening. Due on due Goal Lipid panel. Due on due Goal Lipid Panel. Due on due Goal Urinalysis. Due on due Goal BMI counseling d ocumented in Health Promotion Plan. Due on due Goal HIV-1 AG W/HIV-1 & HIV-2 AB. Due on due Goal Diabetes Screening. Due on due Goal Chlamydia/GC Amplification. Due on due Goal ThinPrep Pap. Due on 2019 due Goal Annual PE. Due on 1 due Goal creatinine. Due on due Goal Calcium; Tot. Due on 2019 due Goal CBC due Goal Depression screening. Due on due Goal Lipid Panel. Due on due Goal Electrocardiogram, complete (ECG). Due on due Goal Electrolyte Panel. Due on due Goal HPV 9 #1 F due Goal Dental Care. Due on due Goal Dental exam. Due on due Goal Depression Screening. Due on due Goal Lipid panel. Due on 020 due Goal Hematocrit due Goal Urinalysis. Due on due Goal ThinPrep Pap. Due on 2018 due Goal Chlamydia/GC Amplification. Due on due Goal Annual PE. Due on 1 due Goal HIV-1 AG W/HIV-1 & HIV-2 AB. Due on due Goal Depression screening. Due on due Goal creatinine. Due on due Goal Calcium; Tot. Due on 2018 due Goal Electrolyte Panel. Due on due Goal Electrocardiogram, complete (ECG). Due on due Goal Dental Care. Due on due Goal Chlamydia/GC Amplification. Due on due Goal HIV-1 AG W/HIV-1 & HIV-2 AB. Due on due Goal Annual PE. Due on 1 due Goal Depression screening. Due on due Goal Calcium; Tot. Due on 2018 due Goal creatinine. Due on due Goal Electrocardiogram, complete (ECG). Due on due Goal Electrolyte Panel. Due on due Goal Dental Care. Due on due Goal ThinPrep Pap. Due on 2018 due Goal Calcium; Tot. Due on 2018 due Goal creatinine. Due on due Goal Electrocardiogram, complete (ECG). Due on due Goal Electrolyte Panel. Due on due Goal Dental Care. Due on due Goal Chlamydia/GC Amplification. Due on due Goal HIV-1 AG W/HIV-1 & HIV-2 AB. Due on due Goal ThinPrep Pap. Due on 2018 due Goal Depression screening. Due on due Goal Annual PE. Due on 1 due Goal Lipid panel. Due on due Goal HIV-1 AG W/HIV-1 & HIV-2 AB. Due on due Goal ThinPrep Pap. Due on 2018 due Goal Chlamydia/GC Amplification. Due on due Goal Depression screening. Due on due Goal Calcium; Tot. Due on 2018 due Goal creatinine. Due on due Goal Electrolyte Panel. Due on due Goal CBC due Goal Electrocardiogram, complete (ECG). Due on due Goal HPV 9 #1 F due Goal Annual PE. Due on 1 due Goal Hematocrit due Goal Lipid Panel. Due on due Goal Urinalysis. Due on due Goal Influenza virus vaccine,trivalent, split virus, for use in individuals 3 years of age and above,. Due on due Goal HIV-1 AG W/HIV-1 & HIV-2 AB. Due on due Goal creatinine. Due on due Goal Electrocardiogram, complete (ECG). Due on due Goal Chlamydia/GC Amplification. Due on due Goal ThinPrep Pap. Due on 2018 due Goal Glu; Mitch. Due on 0 due Goal Influenza virus vaccine, quadrivalent, split virus, preservative free, when administered to individu. Due on due Goal GLYCOSYLATED HEMOGLOBIN TEST . Due on due Goal Diabetes screening. Due on due Goal Electrolyte Panel. Due on due Goal Hematocrit. Due on due Goal CBC due Goal Calcium; Tot. Due on 2018 due Goal HPV 9 #1 F due Goal Lipid Panel. Due on due Goal Annual PE. Due on 9 due Goal Urinalysis. Due on due Goal Annual PE. Due on 9 due Goal Lipid panel. Due on due Goal creatinine. Due on 19 due Goal Annual PE. Due on 9 due Goal Electrocardiogram, complete (ECG). Due on due Goal Creatinine; Bld. Due on due Goal Urinalysis. Due on 19 due Goal Calcium; Tot. Due on 2018 due Goal URINALYSIS, AUTO, W/O SCOPE. Due on due Goal GLYCOSYLATED HEMOGLOBIN TEST . Due on due Goal Glu; Mitch. Due on 0 due Goal HIV-1 AG W/HIV-1 & HIV-2 AB. Due on due Goal ThinPrep Pap. Due on 2018 due Goal Chlamydia/GC Amplification. Due on due Goal Influenza virus vaccine, quadrivalent, split virus, preservative free, when administered to individu. Due on due Goal Influenza virus vaccine,trivalent, split virus, for use in individuals 3 years of age and above,. Due on due Goal Lipid Panel. Due on due Goal Potassium. Due on 9 due Goal Diabetes screening. Due on due Goal Electrolyte Panel. Due on due Goal Self-Mgmt Goals. Due on due Goal Hematocrit. Due on 19 due Goal HPV 9 #1 F due Goal TDAP due Goal Calcium; Tot. Due on 2018 due Goal creatinine. Due on due Goal Glu; Mitch. Due on 0 due Goal ThinPrep Pap. Due on 2018 due Goal HIV-1 AG W/HIV-1 & HIV-2 AB. Due on due Goal Electrolyte Panel. Due on due Goal Diabetes screening. Due on due Goal Lipid Panel. Due on due Goal Hematocrit. Due on due Goal Urinalysis. Due on due Goal Electrocardiogram, complete (ECG). Due on due Goal HPV 9 #1 F due Goal Annual PE. Due on 9 due Goal Influenza virus vaccine, quadrivalent, split virus, preservative free, when administered to individu. Due on due Goal Influenza virus vaccine,trivalent, split virus, for use in individuals 3 years of age and above,. Due on due Goal Chlamydia/GC Amplification. Due on due Goal HIV-1 AG W/HIV-1 & HIV-2 AB. Due on due Goal Influenza virus vaccine, quadrivalent, split virus, preservative free, when administered to individu. Due on due Goal Chlamydia/GC Amplification. Due on due Goal Glu; Mitch. Due on 0 due Goal ThinPrep Pap. Due on 2018 due Goal Influenza virus vaccine,trivalent, split virus, for use in individuals 3 years of age and above,. Due on due Goal TDAP due Goal Influenza, injec table, quadrivalent, preservative free. Due on due Goal Annual PE. Due on 9 due Goal Potassium. Due on 9 due Goal Diabetes screening. Due on due Goal Electrolyte Panel. Due on due Goal Lipid Panel. Due on 019 due Goal Hematocrit. Due on 19 due Goal Self-Mgmt Goals. Due on due Goal URINALYSIS, AUTO, W/O SCOPE. Due on due Goal Electrocardiogram, complete (ECG). Due on due Goal Urinalysis. Due on 19 due Goal Creatinine; Bld. Due on due Goal Calcium; Tot. Due on 2018 due Goal creatinine. Due on 17 due Goal GLYCOSYLATED HEMOGLOBIN TEST . Due on due Goal HPV 9 #1 F due Goal HIV-1 AG W/HIV-1 & HIV-2 AB. Due on due Goal Influenza virus vaccine, quadrivalent, split virus, preservative free, when administered to individu. Due on due Goal ThinPrep Pap. Due on 2017 due Goal Influenza virus vaccine, quadrivalent. Due on due Goal Influenza virus vaccine, trivalent, split virus, preservative free. Due on due Goal Glu; Mitch. Due on 0 due Goal Chlamydia/GC Amplification. Due on due Goal Influenza virus vaccine,trivalent, split virus, for use in individuals 3 years of age and above,. Due on due Goal GLYCOSYLATED HEMOGLOBIN TEST . Due on due Goal Annual PE. Due on 8 due Goal Glu; Mitch. Due on 0 due Goal ThinPrep Pap. Due on 2017 due Goal Influenza virus vaccine, quadrivalent. Due on due Goal Influenza virus vaccine, quadrivalent, split virus, preservative free, when administered to individu. Due on due Goal Influenza virus vaccine, trivalent, split virus, preservative free. Due on due Goal Annual PE. Due on 8 due Goal HIV-1 AG W/HIV-1 & HIV-2 AB. Due on due Goal Influenza virus vaccine,trivalent, split virus, for use in individuals 3 years of age and above,. Due on due Goal Chlamydia/GC Amplification. Due on due Goal GLYCOSYLATED HEMOGLOBIN TEST . Due on due Goal Annual PE. Due on 8 due Goal GLYCOSYLATED HEMOGLOBIN TEST . Due on due Goal ThinPrep Pap. Due on 2017 due Goal Influenza virus vaccine, quadrivalent, split virus, preservative free, when administered to individu. Due on due Goal Influenza virus vaccine, trivalent, split virus, preservative free. Due on due Goal Glu; Mitch. Due on 0 due Goal Influenza virus vaccine, quadrivalent. Due on due Goal Tetanus/diphth [id number]/ je. Due on due Goal HIV-1 AG W/HIV-1 & HIV-2 AB. Due on due Goal Chlamydia/GC Amplification. Due on due Goal Influenza virus vaccine,trivalent, split virus, for use in individuals 3 years of age and above,. Due on due Goal Annual PE. Due on 8 due Goal HIV-1 AG W/HIV-1 & HIV-2 AB. Due on due Goal Influenza virus vaccine,trivalent, split virus, for use in individuals 3 years of age and above,. Due on due Goal Chlamydia/GC Amplification. Due on due Goal ThinPrep Pap. Due on 2017 due Goal GLYCOSYLATED HEMOGLOBIN TEST . Due on due Goal Tetanus/diphth [id number]/ je. Due on due Goal Glu; Mitch. Due on 0 due Goal Influenza virus vaccine, trivalent, split virus, preservative free. Due on due Goal Influenza virus vaccine, quadrivalent, split virus, preservative free, when administered to individu. Due on due Goal Influenza virus vaccine, quadrivalent. Due on due Goal Influenza virus vaccine, quadrivalent. Due on due Goal HIV-1 AG W/HIV-1 & HIV-2 AB. Due on due Goal Chlamydia/GC Amplification. Due on due Goal Influenza virus vaccine,trivalent, split virus, for use in individuals 3 years of age and above,. Due on due Goal ThinPrep Pap. Due on 2017 due Goal HPV 9 #2 F. Due on 07 due Goal HPV 9 #3 F. Due on 08 due Goal Annual PE. Due on 8 due Goal Influenza virus vaccine, trivalent, split virus, preservative free. Due on due Goal Influenza virus vaccine, quadrivalent, split virus, preservative free, when administered to individu. Due on due Goal Influenza virus vaccine, trivalent, split virus, preservative free. Due on due Goal Influenza virus vaccine,trivalent, split virus, for use in individuals 3 years of age and above,. Due on due Goal HPV 9 #2 F. Due on due Goal HPV 9 #3 F. Due on 08 due Goal Annual PE. Due on 8 due Goal Chlamydia/GC Amplification. Due on due Goal HIV-1 AG W/HIV-1 & HIV-2 AB. Due on due Goal Influenza virus vaccine, quadrivalent, split virus, preservative free, when administered to individu. Due on due Goal HPV 9 #3 F. Due on due Goal HPV 9 #2 F. Due on due Goal Influenza virus vaccine, quadrivalent, split virus, preservative free, when administered to individu. Due on due Goal HIV-1 AG W/HIV-1 & HIV-2 AB. Due on due Goal Influenza virus vaccine, trivalent, split virus, preservative free. Due on due Goal Annual PE. Due on 8 due Goal Influenza virus vaccine,trivalent, split virus, for use in individuals 3 years of age and above,. Due on due Goal Chlamydia/GC Amplification. Due on due Goal HIV-1 AG W/HIV-1 & HIV-2 AB. Due on due Goal Influenza virus vaccine, trivalent, split virus, preservative free. Due on due Goal HPV 9 #3 F. Due on due Goal HPV 9 #2 F. Due on due Goal Influenza virus vaccine,trivalent, split virus, for use in individuals 3 years of age and above,. Due on due Goal Annual PE. Due on 8 due Goal Influenza virus vaccine, quadrivalent, split virus, preservative free, when administered to individu. Due on due Goal Chlamydia/GC Amplification. Due on due Goal Tobacco cessation counseling ordered Goal Tobacco cessation counseling ordered Goal Tobacco cessation counseling ordered Goal Tobacco cessation counseling ordered Goal HIV-1 AG W/HIV-1 & HIV-2 AB. Due on due Goal Annual PE. Due on due Goal Influenza virus vaccine,trivalent, split virus, for use in individuals 3 years of age and above,. Due on due Goal Influenza virus vaccine, quadrivalent, split virus, preservative free, when administered to individu. Due on due Goal Chlamydia/GC Amplification. Due on due Goal HPV 9 #2 F. Due on due Goal HPV 9 #3 F. Due on due Goal Influenza virus vaccine, quadrivalent, split virus, preservative free, when administered to individu. Due on due Goal HIV-1 AG W/HIV-1 & HIV-2 AB. Due on due Goal Chlamydia/GC Amplification. Due on due Goal HPV 9 #2 F. Due on due Goal HPV 9 #3 F. Due on due Goal Influenza virus vaccine,trivalent, split virus, for use in individuals 3 years of age and above,. Due on due Goal Annual PE. Due on due Goal HPV 9 #2 F. Due on due Goal HPV 9 #3 F. Due on due Goal Influenza virus vaccine, quadrivalent, split virus, preservative free, when administered to individu. Due on due Goal Chlamydia/GC Amplification. Due on due Goal HIV-1 AG W/HIV-1 & HIV-2 AB. Due on due Goal Annual PE. Due on due Goal HPV 9 #2 F. Due on due Goal HPV 9 #3 F. Due on due Goal ThinPrep Pap. Due on 2016 due Goal Influenza virus vaccine, quadrivalent, split virus, preservative free, when administered to individu. Due on due Goal Chlamydia/GC Amplification. Due on due Goal Annual PE. Due on due Goal HIV-1 AG W/HIV-1 & HIV-2 AB. Due on due Goal Tobacco cessation counseling ordered Goal Tobacco cessation counseling ordered Goal Tobacco cessation counseling ordered Goal Tobacco cessation counseling ordered Goal Annual PE. Due on due Goal Influenza virus vaccine, quadrivalent, split virus, preservative free, when administered to individu. Due on due Goal Chlamydia/GC Amplification. Due on due Goal HPV 9 #3 F. Due on due Goal Depression Screen/PHQ-2. Due on due Goal Blood Pressure Check. Due on due Goal Lipid Panel (Adolescence). D ue on due Goal HPV 9 #2 F. Due on due Goal HIV-1 AG W/HIV-1 & HIV-2 AB. Due on due Goal Tobacco cessation counseling ordered Goal Tobacco cessation counseling ordered Goal Tobacco cessation counseling ordered Goal Tobacco cessation counseling ordered Goal Annual PE. Due on due Goal HIV-1 AG W/HIV-1 & HIV-2 AB. Due on due Goal Blood Pressure Check. Due on due Goal HPV 9 #3 F. Due on 08 due Goal Depression Screen/PHQ-2. Due on due Goal HPV 9 #2 F. Due on due Goal Lipid Panel (Adolescence). D ue on due Goal Chlamydia/GC Amplification. Due on due Goal Influenza virus vaccine, quadrivalent, split virus, preservative free, when administered to individu. Due on due Goal Annual PE. Due on 7 due Goal HIV-1 AG W/HIV-1 & HIV-2 AB. Due on due Goal Chlamydia/GC Amplification. Due on due Goal Influenza virus vaccine, quadrivalent, split virus, preservative free, when administered to individu. Due on due Goal Lipid Panel (Adolescence). D ue on due Goal HPV 9 #2 F. Due on due Goal HPV 9 #3 F. Due on due Goal Blood Pressure Check. Due on due Goal Depression Screen/PHQ-2. Due on due Goal Dietary management education , guidance, and counseling completed Goal Lipid Panel (Adolescence). D ue on due Goal HPV 9 #3 F. Due on due Goal Depression Screen/PHQ-2. Due on due Goal Chlamydia/GC Amplification. Due on due Goal HIV-1 AG W/HIV-1 & HIV-2 AB. Due on due Goal Influenza virus vaccine, quadrivalent, split virus, preservative free, when administered to individu. Due on due Goal Annual PE. Due on due Goal HPV 9 #2 F. Due on due Goal Blood Pressure Check. Due on due Goal Influenza virus vaccine, quadrivalent, split virus, preservative free, when administered to individu. Due on due Goal Chlamydia/GC Amplification. Due on due Goal HIV-1 AG W/HIV-1 & HIV-2 AB. Due on due Goal Annual PE. Due on due Goal Blood Pressure Check. Due on due Goal HPV 9 #3 F. Due on due Goal HPV 9 #2 F. Due on due Goal Depression Screen/PHQ-2. Due on due Goal Lipid Panel (Adolescence). D ue on due Goal HPV 9 #2 F. Due on due Goal Depression Screen/PHQ-2. Due on due Goal HPV 9 #3 F. Due on due Goal Blood Pressure Check. Due on due Goal HIV-1 AG W/HIV-1 & HIV-2 AB. Due on due Goal Chlamydia/GC Amplification. Due on due Goal Influenza virus vaccine, quadrivalent, split virus, preservative free, when administered to individu. Due on due Goal Annual PE. Due on due Goal Lipid Panel (Adolescence). D ue on due Goal HIV-1 AG W/HIV-1 & HIV-2 AB. Due on due Goal Chlamydia/GC Amplification. Due on due Goal Annual PE. Due on due Goal Influenza virus vaccine, quadrivalent, split virus, preservative free, when administered to individu. Due on due Goal Lipid Panel (Adolescence). D ue on due Goal HPV 9 #2 F. Due on due Goal HPV 9 #3 F. Due on due Goal Depression Screen/PHQ-2. Due on due Goal Blood Pressure Check. Due on due Goal HPV 9 #3 F. Due on 08 due Goal Annual PE. Due on due Goal HIV-1 AG W/HIV-1 & HIV-2 AB. Due on due Goal HPV 9 #2 F. Due on due Goal Lipid Panel (Adolescence). D ue on due Goal Influenza virus vaccine, quadrivalent, split virus, preservative free, when administered to individu. Due on due Goal Chlamydia/GC Amplification. Due on due Goal Depression Screen/PHQ-2. Due on due Goal Blood Pressure Check. Due on due Goal Annual PE. Due on due Goal HPV 9 #2 F. Due on due Goal Lipid Panel (Adolescence). D ue on due Goal Influenza virus vaccine,trivalent, split virus, for use in individuals 3 years of age and above,. Due on due Goal Chlamydia/GC Amplification. Due on due Goal Influenza virus vaccine, quadrivalent, split virus, preservative free, when administered to individu. Due on due Goal HIV-1 AG W/HIV-1 & HIV-2 AB. Due on due Goal Blood Pressure Check. Due on due Goal HPV 9 #3 F. Due on 08 due Goal Depression Screen/PHQ-2. Due on due Goal Chlamydia/GC Amplification. Due on due Goal Lipid Panel (Adolescence). D ue on due Goal Blood Pressure Check. Due on due Goal Annual PE. Due on 7 due Goal HIV-1 AG W/HIV-1 & HIV-2 AB. Due on due Goal Influenza virus vaccine, quadrivalent, split virus, preservative free, when administered to individu. Due on due Goal Influenza virus vaccine,trivalent, split virus, for use in individuals 3 years of age and above,. Due on due Goal HPV 9 #3 F. Due on 08 due Goal Depression Screen/PHQ-2. Due on due Goal HPV 9 #2 F. Due on 07 due Goal Influenza virus vaccine, quadrivalent, split virus, preservative free, when administered to individu. Due on due Goal Annual PE. Due on 7 due Goal Influenza virus vaccine,trivalent, split virus, for use in individuals 3 years of age and above,. Due on due Goal Depression Screen/PHQ-2. Due on due Goal HIV-1 AG W/HIV-1 & HIV-2 AB. Due on due Goal Chlamydia/GC Amplification. Due on due Goal HPV 9 #3 F. Due on due Goal Blood Pressure Check. Due on due Goal Lipid Panel (Adolescence). D ue on due Goal HPV 9 #2 F. Due on due Goal Depression Screen/PHQ-2. Due on due Goal Lipid Panel (Adolescence). D ue on due Goal HPV 9 #3 F. Due on due Goal Influenza virus vaccine, quadrivalent, split virus, preservative free, when administered to individu. Due on due Goal HIV-1 AG W/HIV-1 & HIV-2 AB. Due on due Goal Annual PE. Due on due Goal Chlamydia/GC Amplification. Due on due Goal HPV 9 #2 F. Due on due Goal Blood Pressure Check. Due on due Goal HPV 9 #1 F due Goal Lipid Panel (Adolescence). D ue on due Goal HPV 9 #2 F. Due on 16 due Goal HPV 9 #3 F. Due on due Goal Tetanus/diphth Oog-vpzgt-el/ je. Due on due Goal HIV-1 AG W/HIV-1 & HIV-2 AB. Due on due Goal Annual PE. Due on due Goal Influenza virus vaccine, quadrivalent, split virus, preservative free, when administered to individu. Due on due Goal Chlamydia/GC Amplification. Due on due Goal Depression Screen/PHQ-2. Due on due Goal HPV 9 #1 F. Due on 16 due Goal Blood Pressure Check. Due on due Goal Tetanus/diphth Old-xrojo-cj/ je. Due on due Goal HPV 9 #3 F. Due on 16 due Goal Blood Pressure Check. Due on due Goal Chlamydia/GC Amplification. Due on due Goal Depression Screen/PHQ-2. Due on due Goal HPV 9 #1 F. Due on 16 due Goal Lipid Panel (Adolescence). D ue on due Goal HPV 9 #2 F. Due on 16 due Goal Influenza virus vaccine, quadrivalent, split virus, preservative free, when administered to individu. Due on due Goal Annual PE. Due on 6 due Goal HIV-1 AG W/HIV-1 & HIV-2 AB. Due on due Goal HPV 9 #3 F. Due on 16 due Goal HPV 9 #2 F. Due on 16 due Goal Chlamydia/GC Amplification. Due on due Goal Tetanus/diphth Ohn-smhbu-sy/ je. Due on due Goal HIV-1 AG W/HIV-1 & HIV-2 AB. Due on due Goal Influenza virus vaccine, quadrivalent, split virus, preservative free, when administered to individu. Due on due Goal Depression Screen/PHQ-2. Due on due Goal Blood Pressure Check. Due on due Goal Lipid Panel (Adolescence). D ue on due Goal HPV 9 #1 F. Due on 16 due Goal Annual PE. Due on due Goal Blood Pressure Check. Due on due Goal HIV-1 AG W/HIV-1 & HIV-2 AB. Due on due Goal Tetanus/diphth Cko-ncphz-pk/ je. Due on due Goal Influenza virus vaccine, quadrivalent, split virus, preservative free, when administered to individu. Due on due Goal Chlamydia/GC Amplification. Due on due Goal Annual PE. Due on 6 due Goal HPV 9 #3 F. Due on due Goal HPV 9 #2 F. Due on 16 due Goal Depression Screen/PHQ-2. Due on due Goal HPV 9 #1 F. Due on 16 due Goal Lipid Panel (Adolescence). D ue on due Goal Tobacco cessation counseling ordered Goal Tobacco cessation counseling ordered Goal Tobacco cessation counseling ordered Goal Tobacco cessation counseling ordered Goal Tobacco cessation counseling ordered Goal Tobacco cessation counseling ordered Goal Tobacco cessation counseling ordered Goal Tobacco cessation counseling ordered Goal Tobacco cessation counseling ordered Goal Tobacco cessation counseling ordered Goal Tobacco cessation counseling ordered Goal Tobacco cessation counseling ordered Goal Tobacco cessation counseling ordered Goal Tobacco cessation counseling ordered Goal Tobacco cessation counseling ordered Goal Tobacco cessation counseling ordered Goal Tobacco cessation counseling ordered Goal Tobacco cessation counseling ordered Goal Tobacco cessation counseling ordered Goal Tobacco cessation counseling ordered Goal Tobacco cessation counseling ordered Goal Tobacco cessation counseling ordered Goal Tobacco cessation counseling ordered Goal Tobacco cessation counseling ordered Goal Tobacco cessation counseling ordered Goal Tobacco cessation counseling ordered Goal Tobacco cessation counseling ordered Goal Tobacco cessation counseling ordered Goal Tobacco cessation counseling ordered Goal Tobacco cessation counseling ordered Goal Tobacco cessation counseling ordered Goal Tobacco cessation counseling ordered Goal Tobacco cessation counseling ordered Goal Tobacco cessation counseling ordered Goal Tobacco cessation counseling ordered Goal Tobacco cessation counseling ordered Goal Tobacco cessation counseling ordered Goal Tobacco cessation counseling ordered Goal Tobacco cessation counseling ordered Goal Tobacco cessation counseling ordered Goal Tobacco cessation counseling ordered Goal Tobacco cessation counseling ordered Goal Tobacco cessation counseling ordered Goal Tobacco cessation counseling ordered Goal Tobacco cessation counseling ordered Goal Tobacco cessation counseling ordered Goal Tobacco cessation counseling ordered Goal Tobacco cessation counseling ordered Goal Tobacco cessation counseling ordered Goal Tobacco cessation counseling ordered Goal Tobacco cessation counseling ordered Goal Tobacco cessation counseling ordered Goal Tobacco cessation counseling ordered Goal Tobacco cessation counseling ordered Goal Tobacco cessation counseling ordered Referral Ordered: Weight management: Patient referral to dietitian timeframe: 1 Day. (related to Body mass index (BMI) 50-59.9, adult) ordered Referral Ordered: Operations And Maintenance Manager (related to Body mass index (BMI) 50-59.9 , adult) ordered Referral Ordered: Referrals: Operations And Maintenance Manager. Consult ordered Referral Ordered: Referrals: Operations And Maintenance Manager ordered Referral Referred To: [facility] - [facility]NT [address] [place], [address] [phone] Ordered: Referrals: Otolaryngology. [facility] - ENT. Evaluate and treat Appointment date/timeframe: 05/17/2018 ordered Referral Ordered: referred to nutritional (related to Morbid (severe) obesity due to excess calories) ordered History Of Present Illness Encounter Date Complaint History Of Prese nt Illness anxiety (comments) [place], living w/ Dad in his house. Broke up w/ bf in Feb. was in apt in [place] w/ him. 02/20 moved in w/ Dad. Remote [address] for 2, over an hour. Horse in [place], 1.5 hrs. Couple times weekly.Slepe better than I used to. I think things are going ok right now. anxiety This is a follow up visit. The patient presents with anxious/fearful thoughts and excessive worry. The patient's risk factors include financial worries. The anxiety is aggravated by conflict or stress. anxiety This is a follow up visit. The patient presents with anxious/fearful thoughts and excessive worry. The patient's risk factors include financial worries. The anxiety is aggravated by conflict or stress. anxiety This is a follow up visit. The patient presents with anxious/fearful thoughts and excessive worry. The patient's risk factors include financial worries. The anxiety is aggravated by conflict or stress. anxiety This is a follow up visit. The patient presents with anxious/fearful thoughts and excessive worry. The patient's risk factors include financial worries. The anxiety is aggravated by conflict or stress. anxiety (comments) Not on good t erms w/ mom, still lives together w/ mom. Mom is having a hard time and through that is treating me poorly. if I take my medicine consistently. Not really problems w/ sleep or appetite. Nice to have more flexible schedule. Still w/ bf, he still lives w/ her. 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 anxiety (comments) Mom drinking, that has gotten bad. She's been doing a lot of making me feel like I shouldn;t be around, all I do is evelia her down and try to make sure she is ok. Mom had OD of sleeping pills. 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 Will be over May. Still w/ bf, still livigin togather w/ her mom. Still taking zoloft, under more stress, hard to tell whats contributing. Sleep pretty decently. Falling asleep, busy so exhausted, also stressed. Feels tired during the day, always tired. Most mornings bf has to help her get iout of bed. anxiety This is a follow up visit. The patient presents with anxious/fearful thoughts and excessive worry. The patient's risk factors include financial worries. The anxiety is aggravated by conflict or stress. anxiety This is a follow up visit. The patient presents with anxious/fearful thoughts and excessive worry. The patient's risk factors include financial worries. The anxiety is aggravated by conflict or stress. anxiety (comments) Im still the centerpiece between my parents. Moved horse back to [place]-he's mad at me right now but good. Bought another horse. Moving to [place]-no working bathroom in house upstairs for 3 weeks. 4 br 2 car garage in [place]. I love my kids at work but the adults screw you over. Para anxiety This is a follow up visit. The patient presents with anxious/fearful thoughts and excessive worry. The patient's risk factors include financial worries. The anxiety is aggravated by conflict or stress. anxiety (comments) House sold, w as living in hotel in [place]. Parents . A lot of yelling and screaming. A lot of stress, and I had the dog-dad took 2 family dogs and living in [facility] in [place]. Now renting in [place] at house w/ mom and Hugh and dog, and a new cat. Horse moved to [place] and took goat. Has not had to give the ownership up. Goes ydcnpfzj-qh-ge situation. Just finished up hesywvcn-vroh-byrcfi to get teaching opportunity at some point. Went well. Im doing terribly, good day if I cry less than 3 times. anxiety This is a follow up visit. The patient presents with anxious/fearful thoughts and excessive worry. The patient's risk factors include financial worries. The anxiety is aggravated by conflict or stress. anxiety (comments) Right now sic k and has no voice. Things have fallen off wagon, had to stop seeing Salima gr of my insurance-did not cover enough. Rough patch w/ bf Hugh, took some space. He is starting to seem to grow up. Dad decided to tell me he is leaving my mom, they have been together for 25 yrs. House [place] [address], animals have no place to live now. Fiund spot for animals. Dad had minor heart attack. 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 I finally stopped crying everyday so that has been helpful. My anxiety has bene insane. Like pulling teeth to get me to go to barn to ride aspen. Just want to go home watch netflux and eat to make myself feel better. 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 obesity Pertinent negati ves include fatigue. hypertension Pertinent negati ves include chest pain, claudication, dyspnea and fatigue. obesity (comments) picky eater a s long as she can rememberused to eat 'everything' when she was very youngher mom started to stay at home when she was 6 and she catered to her and goldy eating narrowed around thenbody hurtsfeels that medication has helped somewhat acid reflux Pertinent negati ves include chronic cough, sore throat, weight gain and weight loss. Additional information: pt states that she is wondering about going back on omeprazole was on it in the past went off it and now has heartburn again daily in the afternoon evening. acne Relevant history positive for control with oral contraceptive. Additional information: pt states she would like a referral to derm for acne. Preventive exam The patient stat es she uses IUD, Mirena for control. Her menses is irregular with light flow with a frequency of every 28 days. Negative for: breast discharge, breast lump(s), breast pain and breast self exam. Menopausal symptoms negative for: hot flashes, insomnia, night sweats and vaginal dryness. Associated symptoms include vaginal itching. Pertinent negatives include anxiety, depression and vaginal discharge. Diet healthy. She does not take calcium. She does not take Vitamin D. She does take multivitamins. She does not take Folic acid.The patient states her exercise level is moderate and frequency is daily. She has not been exposed to passive smoke. She does drink alcohol. Additional information: pt had ASCUS pap with +HPV 10/07/16. had nml pap 11/23/17. can go back to nml pap tracking now per guidelines.. sinus symptoms continued 2 week f/u for 5+mos of on/off sinus congestionSaw KGR 03/26 started 20mg prednisone for 5 days felt better initially now stuffed up again, runny nose facial pressure/pain never tried omnaris nasal spray breath right nose strips to not stay onhas to breath through her mouth at night appt scheduled with ENT for 05/17 - pt. aware. Sinus symptoms Pertinent negati ves include chills and fever. Additional information: bad rx to 40mg prednisone, so she did 20mg x5days (03/26-03/31)-felt good for a few days-breathing sl improved -L nostril harder to breath through -some facial pressure (forehead and beneath eye Sinus symptoms (comments) Stoppe d Afrin use UTI Additional infor carlos: went to urgent care in [place] last , given augmentin for UTI that had spread to her kidney. Follow Up of Cold symptoms The p atient describes the cough as non-productive. Associated symptoms include cough, dyspnea and nasal congestion. Pertinent negatives include fatigue, fever and rhinorrhea. Additional information: Pt was seen on 03/24 froor cold related symptoms. Was dx prednisone to relieve symptoms. States it helped with opening airways but it caused severe bipolar like mood swings. Has not taken a second dosage. Pt still having chest and nasal congestion. States that the breath rite nasal strips have been helping somewhat. Follow Up of Cold sy mptoms (comments) took prednisone monday night, slept wellsunday afternoon screaming, crying, broke things, lasted about 2 hours10 days of doxycycline and 10 days of augment (finished last monday)used breath rite strip helps short termhasn't started flonasestopped Afrinhumidifier by the bed since Feb 10using essential oils Cold symptoms Onset: 2 months ago. The patient describes the cough as productive (of yellow sputum). There are no aggravating factors. Relieving factors include essential oils. Associated symptoms include cough, fatigue, nasal congestion, post-nasal drainage, sinus pressure and sore throat. Pertinent negatives include fever. Additional information: States throat is dry. Has tried multiple OTC cold medications nasal sprays, full course of doxycycline and full course of Augmentin. Running humidifier. Works in a school. Cold symptoms (comments) Seen for 1 mo hx nasal congestionimproved with flonase and 3-day course of afrinContinues to use Afrin 1-2 x per week at [facility]oes get temporary relief with AfrinSx improved after that, but then returnedcompleted 2 courses abx through sales support engineer and urgent care w/ no improvementcannot breathe through nose anxiety (comments) One of hr jef dents left on 01/11 been nice. Little girl from [place] coming up today she's on her way. Not good w/ anxiety and depresison, been super high lately-if don't have at least one meltdown per day its a good day. Everyday been shit show crying about stupid stuff like tractor would not stop. Relationship is fine, not really providing anxiety. not sure what the trigger is maybe the holidays. Novemeber when lost gram 6 yrs ago. I'm not good enoguh, what's the point. Started seieng a therapist yesterday-Salima Patel-in [place], [place]. She was super awesome. No problems w/ Zoloft. Sleep been ok. Appetite: bene trying to do better. Actually started at gym this week too-inspires better food choices. anxiety This is a follow up visit. There is continuation of initial symptoms and improvement of initial symptoms. The patient reports functioning as somewhat difficult. The patient does not present with anxious/fearful thoughts, diminished interest or pleasure, excessive worry or thoughts of or suicide. The patient's risk factors include financial worries and history of depression. The anxiety is aggravated by conflict or stress, lack of sleep, social interactions and traumatic memories. The patient has appropriate response to medication. The patient understands medication. anxiety This is a follow up visit. There is continuation of initial symptoms and improvement of initial symptoms. The patient reports functioning as somewhat difficult. The patient does not present with anxious/fearful thoughts, diminished interest or pleasure, excessive worry or thoughts of or suicide. The patient's risk factors include financial worries and history of depression. The anxiety is aggravated by conflict or stress, lack of sleep, social interactions and traumatic memories. The patient has appropriate response to medication. The patient understands medication. 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 [employer]. Prefers the big group setting. Anxious about school next day every nightt-horse has another month of stall rest, things going better w/ bf. Mom gloab foundries work on line, dad contrustion broke worker-[employer]. Used to own his own business. Mom grew up on [employer]. Best friends w/ dad, doesnt get along w/ mom. Mom is very judegemental. Step brother in 2007 od on heroin-dad's child. James. Richardson was raised by dad but dad not dad, committed suicide-by the time kids were 2 dad had left. Depression has bene ok, a lot of anx cenered around school. Sleeping ok, usually. Once up fine. anxiety This is a follow up visit. The date of the initial visit for this episode was 05/06/2015. There is continuation of initial symptoms and worsening of previously reported symptoms. There is no improvement of initial symptoms. The patient reports functioning as somewhat difficult. The patient presents with anxious/fearful thoughts but denies diminished interest or pleasure, excessive worry or thoughts of or suicide. The patient's risk factors include financial worries and history of depression. The patient's risk factors exclude unemployment. The anxiety is aggravated by conflict or stress, lack of sleep, social interactions and traumatic memories. The patient has appropriate response to medication. The patient understands medication. anxiety This is a follow up visit. There is continuation of initial symptoms and improvement of initial symptoms. The patient reports functioning as somewhat difficult. The patient does not present with anxious/fearful thoughts, diminished interest or pleasure, excessive worry or thoughts of or suicide. The patient's risk factors include financial worries and history of depression. The anxiety is aggravated by conflict or stress, lack of sleep, social interactions and traumatic memories. The patient has appropriate response to medication. The patient understands medication. Runny nose (FP) (comments) inter mittent runny nose and congestionlast few nights very congestednow with ST todaysome dizzinessno recent sick contactsnon smoker3 dogs, 1 horse and 1 goatoccasional seasonal allergies-taking claratin daily Runny nose (FP) The symptoms beg an 1 month ago. The symptoms have remained unchanged. The symptoms occur intermittently. The patient presents with cough, fatigue, generalized weakness and headache. The patient does not present with fever. The illness is associated with dizziness, dyspnea and lightheadedness. The self denies change in sleep cycle. Additional information: Dayquill sudaphen, headaches, sore throat, balance is off, cough. SOB from dyspnea from nose in past 5 days. Has central air at home, prefers air outside. Has Lyme disease (8 or 9 years ago, tested positive in 2014). World spins at times- also happens when blowing nose 3/4 gallon of water/day. depression This is a follow up visit. depression (comments) I'm good. Trying to work it out w/ bf. A whole lot of , trying to reconcile and forgive. Mood fairly stable. As long as taking medication, if don'tmissed couple days-w/ lady house sitting. Sleep-betetr this week, last week not so good. Appetite-back to eating all the time. 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 Thinks would be nice fit. barrel racing, it's great. anxiety (comments) Found out sarah beth nce cheated on her w/ 12 girls. Found out Monday night. First barrel race ever on Monday w/ . Graduated college Monday. Meltdown during [place]. I'm really upset and hurt bc he asked me to him, bougtb wedding dress. At same time knows he cheated on her made it easier. Parents have been great. [facility] me closer [facility]. Daytime fine and night time hard bc he lived with me. Had dog together kept dog. Haven't slept in days or eaten days. First person on either side of family to graduate. 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 Every competition. things are nto as bad as they were in May-that is super helpful. Would liek to get into talk to somebody. anxiety This is a follow up visit. The date of the initial visit for this episode was 05/06/2015. There is continuation of initial symptoms and improvement of initial symptoms. The patient reports functioning as somewhat difficult. The patient presents with anxious/fearful thoughts, difficulty concentrating, difficulty falling asleep and loss of appetite but denies depressed mood, diminished interest or pleasure, excessive worry or thoughts of or suicide. The patient's risk factors include financial worries and history of depression. The anxiety is aggravated by conflict or stress, lack of sleep, social interactions and traumatic memories. The patient has appropriate response to medication. The patient understands medication. depression This is a follow up visit. anxiety This is a follow up visit. There is continuation of initial symptoms and improvement of initial symptoms. The patient reports functioning as somewhat difficult. The patient does not present with anxious/fearful thoughts, diminished interest or pleasure, excessive worry or thoughts of or suicide. The patient's risk factors include financial worries and history of depression. The anxiety is aggravated by conflict or stress, lack of sleep, social interactions and traumatic memories. The patient has appropriate response to medication. The patient understands medication. Nov depression This is a follow up visit. cough Onset: 3 days ag o. The patient describes the cough as hacking, productive (of yellow sputum) and Cough to point of vomiting. Symptoms are aggravated by exertion and lying down. Associated symptoms include cough, nasal congestion, pleuritic pain, post-nasal drainage, rhinitis, sinus pressure and wheezing. Pertinent negatives include sore throat. Additional information: Pt reports having coughing fits that are so severe she vomits. Reports a headache and her throat feels full of mucous. Taking OTC cough meds. Inspiratory wheeze only. Has had seasonal allergies this years. cough (comments) Pt says she has been consuming large amounts of fluid every day to try to meep airways moist, at least 6 quarts per day. Inquiry whether knows she may have diabetes was followed by pt saysing she failed to lose weight with metformin and stopped it 2 months ago. Admits told she is at risk for diabetes, with last testing for this by an brick or block maker a few years ago, but has not been tested since. contraceptive manage ment (comments) was told that she has PCOS, she has irregular menstrual period at baseline. she is sexually active with her biyfriend, LMP was 2 M ago. contraceptive management Tried I [facility]D at [facility], would not work d/t anatomy. Tried pills, bad s/e (heavy bleeding, htn. PT has been on depo in the past and would like to try again. UPT done today. PT to go over consent with CLEVE. Pt states menstrual cycle supposed to start today but has not yet. She is aware first shot normally given during first 5 days of menstruation.Depo started today. Consent gone over with CLEVE, UPT negative, shot given in R arm without incidence. Lot # [id number], exp: 09/2018.Next shot will be due 10/20-11/03 anxiety (comments) Been ok-schoo l yr is over. Start work on monday-able to keep same job. 3 wks missed job. Likes peopledid well this semster-all a's and one bt. 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 Still with bf. Started backing off medication took 50 mg for week then went back up-was bad timing. [place] more miserable-thought about a lot pf her losses-felt monica like wanted to cry a lot. More irritable. now mood improved over last few perez. Sleep: I love sleep. Ate hamburger frm restaurant-1st time ever eaten one outside of fast food. Just really felt like having one. anxiety This is a follow up visit. There is continuation of initial symptoms and improvement of initial symptoms. The patient reports functioning as somewhat difficult. The patient does not present with anxious/fearful thoughts, diminished interest or pleasure, excessive worry or thoughts of or suicide. The patient's risk factors include financial worries and history of depression. The anxiety is aggravated by conflict or stress, lack of sleep, social interactions and traumatic memories. The patient has appropriate response to medication. The patient understands medication. anxiety This is a follow up visit. There is continuation of initial symptoms and improvement of initial symptoms. The patient reports functioning as somewhat difficult. The patient does not present with anxious/fearful thoughts, diminished interest or pleasure, excessive worry or thoughts of or suicide. The patient's risk factors include financial worries and history of depression. The anxiety is aggravated by conflict or stress, lack of sleep, social interactions and traumatic memories. The patient has appropriate response to medication. The patient understands medication. anxiety (comments) I'm ok bf a nd her had danisha patch on Monday-his ex sending her messages-meltdown for few hours. Otherwise good month until. Fililyt bf in 4 yrs-anxiety about why he wants to be with her. Saud was living in [place]-mom decided wanted to come back to [facility] family here. dads family has but her and pt lived in [place] whole life. Mom has been distant or then tries to get clingy. Parents distant with eachother. Parents put her in middle of it. Mom comments about ehr weight or appearance. Bf Hugh. Lost 18 lbs since beginning of yr. Mom doesnt care just asks her when she goes to gym. Acne was bad and mom said face looks bad. 2 wks left in classes-thinks she has done well. Works [employer] in [place] office. [place] not needed amirtrityline-sleeps so much. But healthy sleep. Sleep well. 2 headaches induce by other people's driving when she is with other in past 1.5 month. Preventive exam The patient stat es she uses oral contraceptive for control. Last LMP was 06/05/2016. Her menses is irregular with heavy flow. Negative for: breast discharge, breast pain and breast self exam. Associated symptoms include anxiety and depression. Pertinent negatives include difficulty falling sleep, urinary incontinence, urinary urgency, vaginal discharge and vaginal itching. Diet high calorie. She does not take calcium. She does not take Vitamin D. She does take multivitamins daily. She does not take Folic acid.The patient states her exercise level is moderate and frequency is 3-4 times/week. She does not drink alcohol. Additional information: Never had a papCurrently sexually activeStarted ocp on 05/26, started period a week later and has had it since. Very heavy bleeding, changing pads 8-10 times/day. Having clots. Has been on many pills and depo shot in the past. Follow Up of Abdominal pain The problem is improving. The symptoms are recurring. The location is diffuse. Associated symptoms include bloating. Pertinent negatives include dizziness, fever, nausea and vomiting. Additional information: Omeprazole helping. Abdominal discomfort not as frequent, having about 3-4 x week. depression This is a follow up visit. The date of the initial visit for this episode was 05/06/2015. There is improvement of initial symptoms. There is no continuation of initial symptoms. The patient reports functioning as not difficult at all. The patient does not present with anxious/fearful thoughts, excessive worry or thoughts of or suicide. The patient's risk factors include financial worries and history of depression. The patient's risk factors exclude unemployment. The depression is aggravated by conflict or stress, lack of sleep and social interactions. The patient has appropriate response to medication. The patient understands medication. contraceptive manage ment (comments) has borderline HTN, OB suspected her to have PCOS. contraceptive management Pt inte rested in discussing Nexplanon. Previously on depo but gained 50lbs in 15mos. Tried Trinessa OCP but had to stop d/t HTN. Also tried another OCP that caused excessive menstrual bleeding. Sees an OB in [place]. Has not had a pap yet. Not currently sexually active. Irregular cycles - light bleeding since mid 03/2016. Last depo injection was 10/2015. Eye problems (FP) Onset: 3 Days. Symptoms located at left upper lid and left conjunctiva. Discomfort is described as dry sensation and itchy. Patient reports no discharge. Symptoms are associated with concurrent URI symptoms. Symptoms are not associated with exposure to pink eye or recent trauma. Aggravating factors include contact lenses. Aggravating factors additional comments: hasn't been able to wear contact lenses. Associated symptoms include itching, nasal congestion and tearing. Pertinent negatives include blurred vision, eye pain, eye(s) crusted shut in AM, fever, rash around affected eye(s), red/purple color around eye or vision loss. Associated symptoms additional comments: Denies discharge, watering constantly. Additional information: itching, swelling of the L eye lid-had scant crust this AM. upper Lid mildly red since 05/11/16. Abdominal pain (comments) postpr andial pain, no food ingestion, no pain. can tolerate liquid diet, greasy and heavy meal makes symptom worse. Abdominal pain Onset: 1 Year. T he location is midline. The quality of the pain is sharp. Aggravating factors include eating. Symptoms are relieved by not eating. Associated symptoms include diarrhea, nausea and abdominal pain. Pertinent negatives include vomiting. Additional information: Pt here for ongoing abdominal pain/diarrhea-states she can't eat anything w/out getting sick. Pt used to be able to only eat PB&J but now can't keep any food down as of 3 weeks ago. States she has diarrhea 4-5x a day almost immediately after eating. pre op pe Cheif complaint: Left carpal tunnelPlanned procedure: Left endoscopic carpal tunnel releaseSurgery date: 05/23/16: [place] number: [phone] Allergies: cefazolinAllergies to shellfish or iodine: no wrist pain Onset: 1 to 2 ye ars ago. It occurs constantly and is worsening. Location: left wrist. The pain is aching and sharp. The pain is aggravated by lifting and movement. The pain is relieved by brace/splint and ice. Associated symptoms include decreased mobility, nocturnal awakening, nocturnal pain, numbness, tingling in the arms and weakness. Pertinent negatives include bruising, crepitus, limping and locking. Additional information: Had surgery on R wrist in Feb for carpal tunnel, having left done in May. anxiety This is a follow up visit. The date of the initial visit for this episode was 05/06/2015. There is continuation of initial symptoms and improvement of initial symptoms. The patient reports functioning as somewhat difficult. The patient presents with difficulty falling asleep but denies anxious/fearful thoughts, diminished interest or pleasure, excessive worry or thoughts of or suicide. The patient's risk factors include financial worries and history of depression. The anxiety is aggravated by conflict or stress, lack of sleep, social interactions and traumatic memories. The patient has appropriate response to medication. The patient understands medication. anxiety (comments) Mood lately n ot great-has been diagnosed withLyme and PCOS since Nov. Riley Baldwin had for 7 yrs-finally got sick and tired of being sick and tired-tested and it was confirmed. Sent to infect coby at hosp-person she saw said she is not a lyme specialist. [facility] told have PCOS. No treatment bc not at age where wants to have kids. [place] since Nov-gained 35 lbs in yr. Poor sleep. Happened last winter also very poor sleep. Then got better in spring. Once asleep stays asleep well. [employer]-classes started today-second semester of [employer]-studyng secondary ed and history. Started seeing counselor Mar 2015-mid summer 2015-did not fit well-weren't really talking about any issues-Gegeedin pacheco-[place] rober[facility]. pre op PE Cheif complaint: carpal tunnel R handPlanned procedure: RT endoscopic carpal tunnel release Surgery date: 16Surgeon: Dr. Ghotra number: Medication Allergies: Cefazolin Allergies to shellfish or iodine: NONo h/o complications with anesthesiaNo h/o bleeding disordersNo h/o DVT/PEHPI: H/o bilateral CTS R>L symptoms since 01/2014 that worsens with work, driving, and at nighttime. Wearing bilateral wrist splints. Sp EMG test. Social: works as compliance administrator in fundraising assistance at [employer] wrist pain Onset: 2 years a go. It occurs constantly and is worsening. Location: bilateral wrist. The pain radiates to the arms to elbow. The pain is sharp. The pain is aggravated by bending, lifting and holding things. Associated symptoms include crepitus, decreased mobility, joint tenderness, numbness, swelling, tingling in the arms and weakness. Pertinent negatives include locking and popping. Additional information: Severe carpal tunnel bilaterally, getting R wrist done 02/28. Competetive [employer] for many years + working with horses led to injury. OCP -c/o hy/o menorr hagia and desire for new contraception option-most recently was on depo provera from 08/2014-10/2015-Saw ID for concern of symptoms related to lyme disease and was told that some symptoms of fatigue may be related to depo so pt came off of it-h/o VESNA but was told to come off due high blood pressure -h/o progestin OC but didn't stop menorrhagia Eye problems (FP) Onset: 1 Day. The severity of the problem is moderate. The problem has not changed. The symptoms are persistent. Symptoms located at left upper lid, left lower lid, left sclera and left periorbital area. Discomfort is described as itchy. Discharge is described as clear. Symptoms are not associated with exposure to pink eye. Associated symptoms include conjunctival edema, left eye pain, itching, nasal congestion, rhinorrhea, rubbing eye and tearing. Pertinent negatives include blurred vision, eye(s) crusted shut in AM, fever or vision loss. Additional information: Works in middle school. Has had symptoms since yesterday around noon. Discuss lyme results H/o lyme Ig G positive bands >5. Pt has h/o multiple EM rashes, fatigue, joint pain and neuropathic pain for the past 7 years. No prior treatment on lyme but was previously on doxycycline 100mg BID for acne on 03/2015 and stopped around end of 07/2015 and noted an increase in symptoms of fatigue. No change in her joint pain symptoms. Restarted amitriptyline 25mg 2 wks ago for daily ZEPEDA. carpal tunnel syndrome Severity of symptom is moderate. Status of symptoms has worsened. The problem occurs intermittently. Affected side: bilateral. Presenting/Initial symptoms include tingling sensation in fingers. There is radiation to forearm. The context includes gradual. Symptoms are aggravated by working on a computer keyboard. Associated symptoms include difficulty sleeping, joint pain, numbness and tingling in arms. Additional information: C/o bilateral hand tingling and numbness, dropping things, waking her up at night. Braces wake her up at night. 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 Pt states that 7 years ago she was bit by a tick and they would not do any testing on her since she is from [place]., she did have the bullseye rash. Since that time she states that her symptoms are fatigued, ZEPEDA's, 'nervous system pain', joint pain. She has been doing research on this and feels that she needs to be tested for Lyme disease. Depo Injection Pt here for Depo Injection, Last injection was 07/22/15 , Due between 10/07/15-10/21/15 ___. Pt is well within dates, no UPT is requiredPt signed Depo Consent Sheet, See Consent for Lot and Exp.Depo 150mg/ml, 1ml administered IM in ___R Deltoid . Tolerated well.Pt is due for next injection between 12/30/15-01/13/16 . KB Diarrhea (FP) (comments) usually has this issue with dairy but now it doesn't matter what she eats. can't think of anything different that happened when it started. noone else around her as similar issues. doesn't feel sick. does notice some burning in the back of her throat. no vomiting. only felt like she needed to once. diffuse pain in abdomen all the time except after she eats. sometimes pain in epigastric and other times lower quadrant. yesterday and today her stool has become more formed. was never watery. some blood on toilet paper when wiping. BMs are more frequent. 4-8 times per day. normal for her is 1-3.no recent travel. Diarrhea (FP) Onset: 2 to 3 we eks ago. The patient describes it as loose, brown and yellow. The problem is improving. Associated symptoms include abdominal pain and cramping (abdominal). Pertinent negatives include nausea, vomiting and decreased appetite. Additional information: Eating relieves abdominal pain and but then 20-25 minutes later will have diahrrea. Does note some dairy intolerance. anxiety This is a follow up visit. The date of the initial visit for this episode was 05/06/2015. There is improvement of initial symptoms. There is no continuation of initial symptoms. The patient reports functioning as not difficult at all. The patient does not present with anxious/fearful thoughts, diminished interest or pleasure, excessive worry or thoughts of or suicide. The patient's risk factors include financial worries and history of depression. The anxiety is aggravated by conflict or stress, lack of sleep, social interactions and traumatic memories. The patient has appropriate response to medication. The patient understands medication. anxiety (comments) Mood pretty g ood still occasional depressive episodes not troublesome-difference from before. Think helped-Only two in last month. Sleep: Pretty good addicted to netflix. Denied Si/HI/AH/VH. NO se's. Tired at first. Appetite: Good. Started to wor horse again. [facility] [facility] Depo injection Pt here for Depo . Last injection was 04/29/15Due 07/16/15-07/30/15Next Due 10/07/15-10/21/15 anxiety This is a follow up visit. The date of the initial visit for this episode was 05/06/2015. There is continuation of initial symptoms and improvement of initial symptoms. The patient reports functioning as somewhat difficult. The patient presents with anxious/fearful thoughts, diminished interest or pleasure, excessive worry, racing thoughts and restlessness but denies depressed mood or thoughts of or suicide. The patient's risk factors include financial worries and history of depression. The anxiety is aggravated by conflict or stress, lack of sleep, social interactions and traumatic memories. The patient has appropriate response to medication. The patient understands medication. anxiety This is a follow up visit. The date of the initial visit for this episode was 05/06/2015. There is improvement of initial symptoms. There is no continuation of initial symptoms. The patient reports functioning as not difficult at all. The patient does not present with anxious/fearful thoughts, diminished interest or pleasure, excessive worry or thoughts of or suicide. The patient's risk factors include financial worries and history of depression. The anxiety is aggravated by conflict or stress, lack of sleep, social interactions and traumatic memories. The patient has appropriate response to medication. The patient understands medication. Follow Up of Follow Up of Follow Up of hypertension Associated symptoms include epistaxis and headache. Pertinent negatives include chest pain, dyspnea, fatigue, nausea and visual disturbances. Acne Aggravating fact ors include stress. Symptoms are relieved by oral antibiotics. Symptoms are not relieved by Cetaphil. Associated symptoms include scarring and sensitive skin. Pertinent negatives include dry skin, oily skin, pruritus or skin cracking. Additional information: taking doxycycline with good effect. has notices an increase in sensitivity to dairy products, diarrhea and stomach ache, has been eating it less, feel skin has improved with this change as well. depression (comments) Depression and anxiety. Sleep troubles falling asleep and staying asleep body doesn't feel like it shguts down, mentally exhausted but cant sleep, some weeks it is better. Worse since summer. Stress at [facility] has contributed. Studies secondary education. 3 classes. Financial stress thought she was going to get work study and did not. started therapist Franci Pearce 2-3 times so far 2-3 weeks ago. Appetite: Like to eat, dont miss meals-over eatVery picky eater- only will eat corn and lettuce. Walk a lot at school-class 2 days week-other days studying. Feeds horse. High BP. MIgraines. Carpal tunnel, was pre-diabetic a couple yrs ago. Allergic to cephcyl high fever.Amitrityline 7 yrs ago upped Nov to 50 mg. No ETOH, no cigs, no mj, no cocaine, opiates. NO caffeine occasional soda not even once weekly. Half brother heroin OD. Dad when younger drugs and ETOH. Mom depression takes med. dad-thinks he has depression, not treated. depression This is an initi al visit. There is continuation of initial symptoms. The patient reports functioning as very difficult. The patient presents with anxious/fearful thoughts, depressed mood, difficulty falling asleep, difficulty staying asleep, diminished interest or pleasure and excessive worry but denies hallucinations, loss of appetite or thoughts of or suicide. The patient's risk factors include of a friend or loved one, family history of depression, family history of anxiety, financial worries and history of depression. The depression is aggravated by conflict or stress, lack of sleep, social interactions and traumatic memories. The patient has appropriate response to medication. She does not have barriers to taking medication. The patient understands medication. Nurse Visit- Depo Pt here for De po Injection, Last injection was 02/06/15, Due between . Pt is well within 04/24/15 - 05/08/15 dates, no UPT is requiredPt signed Depo Consent Sheet, See Consent for Lot and Exp.Depo 150mg/ml, 1ml administered IM in Right Deltoid. Tolerated well.Pt is due for next injection between 07/16/15 - 07/30/15. Establish care New pt here to [facility]. Previously seen [facility].PMH: Migrians, Depression, AnxietySurg Hx: Tonsils and adenoid surgeryFamily Hx: Paternal: Cancer, DM, Heart Disease, HTN Maternal: Depression, DM, HTNLast PE: Mar 2014? Last Td: UnsureRelease for Previous Records: Signed today depression This is an initi al visit. The patient presents with anxious/fearful thoughts, depressed mood, difficulty falling asleep, diminished interest or pleasure, excessive worry, fatigue, feelings of guilt, feelings of invulnerability and restlessness but denies compulsive thoughts, decreased need for sleep, difficulty concentrating, difficulty staying asleep, easily startled, increased energy, hallucinations,decreased libido, increased libido, loss of appetite, paranoia, poor judgment, racing thoughts or thoughts of or suicide. The depression is aggravated by conflict or stress and social interactions. Additional information: Pt is on Amitriptylin 50mg states this is helping pt will be out of this med in a week. Acne The patient pres ents with acne that began 6 months ago. The problem is severe and worsened. Area(s) affected include the face. Relevant history positive for family history of depression and control with depo provera. The patient is not sexually active. The patient denies history of liver disease, history of renal disease, previously taken Accutane and sensitive skin. The acne has been managed topically with tretinoin cream with a poor response. Associated symptoms include painful lesion and scarring. Pertinent negatives include dry skin, oily skin, sensitive skin or skin cracking. Additional information: Pt states the cream she was given is making the acne worse. hand pain It occurs consta ntly and is worsening. Location: bilateral hand. There is no radiation. The pain is aching. Associated symptoms include difficulty initiating sleep. Additional information: patient reports she was dx with CTS in hands bilat. She has a horse, anything to do with gripping: holding reins, cleaning stable, shoveling, hands go numb. Instructions Date Instruction Additional Infor carlos Continue medications as prescribed.Please follow up with NANETTE Ryan in one month.You may come to the psychiatry walk in clinic any Monday morning before your next scheduled appointment if needed, (check in between 8:30 am and 10:30 am)Call [facility] before this if you have questions or need immediate assistance For psychiatric emergency call [facility] # Related to Anxiety disorder, unspecified Continue medications as prescribed.Please follow up with NANETTE Ryan in one month.You may come to the psychiatry walk in clinic any Monday morning before your next scheduled appointment if needed, (check in between 8:30 am and 10:30 am)Call [facility] before this if you have questions or need immediate assistance For psychiatric emergency call [facility] # Related to Anxiety disorder, unspecified Continue medications as prescribed.Please follow up with NANETTE Ryan in one month.You may come to the psychiatry walk in clinic any Monday morning before your next scheduled appointment if needed, (check in between 8:30 am and 10:30 am)Call [facility] before this if you have questions or need immediate assistance For psychiatric emergency call [facility] # Related to Anxiety disorder, unspecified Continue Zoloft 200 mg and BuSpar 10 mg twice daily. Please follow up with NANETTE Ryan in one month.You may come to the psychiatry walk in clinic any Monday morning before your next scheduled appointment if needed, (check in between 8:30 am and 10:30 am)Call [facility] before this if you have questions or need immediate assistance For psychiatric emergency call [facility] # Related to Anxiety disorder, unspecified Continue medications as prescribed.I recommend starting therapy, try to reach out to the 2 people I gave you the names of, let me know how it goes. Please follow up with NANETTE Ryan in one month.You may come to the psychiatry walk in clinic any Monday morning before your next scheduled appointment if needed, (check in between 8:30 am and 10:30 am)Call [facility] before this if you have questions or need immediate assistance For psychiatric emergency call [facility] # Related to Anxiety disorder, unspecified Continue medications as prescribed.Please follow up with NANETTE Ryan in one month.You may come to the psychiatry walk in clinic any Monday morning before your next scheduled appointment if needed, (check in between 8:30 am and 10:30 am)Call [facility] before this if you have questions or need immediate assistance For psychiatric emergency call [facility] # Related to Anxiety disorder, unspecified Ok to try hydroxyzin e if needed for sleep 1-2 tabs.Take BuSpar 5 mg tab up to three times day if needed for anxiety. Continue Zoloft 200 mg. Follow up in 1 month, call before next appt if needed.You may come to the psychiatry walk in clinic any Monday morning before your next scheduled appointment if needed, (check in between 8:30 am and 10:30 am)Call [facility] before this if you have questions or need immediate assistance For psychiatric emergency call [facility] # Related to Anxiety disorder, unspecified Continue Zoloft 200 mg.Start hydroxyzine 25 mg tab-take half to one tab if needed for severe anxiety.Up date me through portal or by calling psych nurse/Kathy if needed before next appt. Please follow up with NANETTE Ryan in 2 months.Check out website for therapist Flavia Pickard or consider contacting Salima again. You may come to the psychiatry walk in clinic any Monday morning before your next scheduled appointment if needed, (check in between 8:30 am and 10:30 am)Call [facility] before this if you have questions or need immediate assistance For psychiatric emergency call [facility] # Related to Anxiety disorder, unspecified Gently wash and dry face twice daily. Use gentle cleanser, such as cetaphil, dove soap, or even just warm water. Do not use scrubs.Apply benzaclin gel to face using finertips, avoiding eyes. Start by using this once daily, and then work up to twice daily. It's very drying, so initially your skin will look worse - red, dry, etc.Avoid nasal folds and mouth. To avoid scarring:Do not pickWeatr a moisturizer with SPF 30 or greaterThis can take up to a couple of months for your desired outcome, so hang in there. Related to Acne vulgaris Please take Predniso ne 20mg daily. STOP if you have another episode of emotional lability.Please picking tech and start Omnaris. Instill 1 spray in each nostril daily.Do NOT use Afrin.Trial neti pot or sinus rinse.Continue with humidifier over the head of the bed and breath rite strips.Return to clinic in 2 weeks for follow up or sooner if worsening facial pain, congestion, fever, trouble breathing, or generally feeling unwell. Related to Sinus congestion Continue oloft 200 m g.Start therapy w/ Salima Patel. Please follow up with NANETTE Ryan in 1-2 monthsYou may come to the psychiatry walk in clinic any Monday morning before your next scheduled appointment if needed, (check in between 8:30 am and 10:30 am)Call [facility] before this if you have questions or need immediate assistance For psychiatric emergency call [facility] # Related to Anxiety disorder, unspecified Continue medications as prescribed.Please follow up with NANETTE Ryan in 4 weeks.You may come to the psychiatry walk in clinic any Monday morning before your next scheduled appointment if needed, (check in between 8:30 am and 10:30 am)Call [facility] before this if you have questions or need immediate assistance For psychiatric emergency call [facility] # Related to Anxiety disorder, unspecified Continue medications as prescribed.Please follow up with NANETTE Ryan in 2-4 weeks.You may come to the psychiatry walk in clinic any Monday morning before your next scheduled appointment if needed, (check in between 8:30 am and 10:30 am)Call [facility] before this if you have questions or need immediate assistance For psychiatric emergency call [facility] # Related to Anxiety disorder, unspecified Continue medications as prescribed.Please follow up with NANETTE Ryan in 2-4 weeks.You may come to the psychiatry walk in clinic any Monday morning before your next scheduled appointment if needed, (check in between 8:30 am and 10:30 am)Call [facility] before this if you have questions or need immediate assistance For psychiatric emergency call [facility] # Related to Anxiety disorder, unspecified Your blood pressure was elevated today. It is important to lower this to protect your body and maintain your health [facility]. The following are some recommendations to help you lower your blood pressure without a medication.Engage in aerobic exercise most days of the week for at least 30 minutes.Your diet should be well balanced and high fruits, vegetables, and whole grains. Eat a low salt diet not more than 2000mg per day. Please refer to the handout I provided you for some food suggestions. Stop smokingMinimize intake caffeine and alcoholPlease seek immediate medical care if you have crushing headache, vision changes, chest pain, palpitations, or shortness of breath. Related to Elevated BP without diagnosis of hypertension Please start Flonase 1 spray in each nostril twice a day. Take this consistently over the next 1-2 months.Pickup and start Afrin. Instill in nose as needed for congestion. Follow dosing on the bottle. Please DO NOT use for more then 3 days.Continue oral antihistamine.Consider using nedi pot or nasal saline as needed to help with congestion.Follow up with Dr. Dela Cruz to discuss blood pressure elevation.Return to clinic if worsening congestion, facial pain, fever, bloody noses. Related to Sinus congestion Continue Zoloft 200 mg.Please follow up with NANETTE Ryan in 2 months. You may come to the psychiatry walk in clinic any Monday morning before your next scheduled appointment if needed, (check in between 8:30 am and 10:30 am)Call [facility] before this if you have questions or need immediate assistance For psychiatric emergency call [facility] # Related to Major depressv disorder, recurrent severe w/o psych features Continue medications as prescribed.Please follow up with NANETTE Ryan in 2-4 weeks.Start therapy to target symptoms. You may come to the psychiatry walk in clinic any Monday morning before your next scheduled appointment if needed, (check in between 8:30 am and 10:30 am)Call [facility] before this if you have questions or need immediate assistance For psychiatric emergency call [facility] # Related to Anxiety disorder, unspecified Continue Zoloft 200 mgPlease follow up with NANETTE Ryan in 1 monthYou may come to the psychiatry walk in clinic any Monday morning before your next scheduled appointment if needed, (check in between 8:30 am and 10:30 am)Call [facility] before this if you have questions or need immediate assistance For psychiatric emergency call [facility] # Related to Major depressv disorder, recurrent severe w/o psych features Continue Zoloft 100 mgPlease follow up with NANETTE Ryan in 1 monthYou may come to the psychiatry walk in clinic any Monday morning before your next scheduled appointment if needed, (check in between 8:30 am and 10:30 am)Call [facility] before this if you have questions or need immediate assistance For psychiatric emergency call [facility] # Related to Anxiety disorder, unspecified Continue medications as prescribed.Please follow up with NANETTE Ryan You may come to the psychiatry walk in clinic any Monday morning before your next scheduled appointment if needed, (check in between 8:30 am and 10:30 am)Call [facility] before this if you have questions or need immediate assistance For psychiatric emergency call [facility] # Related to Major depressv disorder, recurrent severe w/o psych features Reviewed results toabram gray. Pt has normal glucose now, does not need to be on metformin. Related to Prediabetes Discussed she may se e some improvement in skin with this, and may want to consider resuming for longer time for acne. Related to Acne Benzonatate 200 mg t hree times daily prn for cough will help tickle in throat that triggers cough. Related to Cough Try Afrin nasal deco ngestant spray twice daily for 3 days then a 3 day interval off before using again.You should have some relief from the congestion with that, and in the interval between days of using it, OK to try nasal saline sprays or a Neti pot.Doxycycline 100 mg to be taken with water twice daily x 14 days.Call if symptoms persist or are worsening. Related to Acute maxillary sinusitis, unspecified Continue Zoloft 75 m g. Please follow up with NANETTE Ryan in 2-3 months You may come to the psychiatry walk in clinic any Monday morning before your next scheduled appointment if needed, (check in between 8:30 am and 10:30 am)Call [facility] before this if you have questions or need immediate assistance For psychiatric emergency call [facility] # Related to Anxiety disorder, unspecified Okay to taper down o n Zoloft to 50 mgPlease follow up with NANETTE Ryan in 1 monthYou may come to the psychiatry walk in clinic any Monday morning before your next scheduled appointment if needed, (check in between 8:30 am and 10:30 am)Call [facility] before this if you have questions or need immediate assistance For psychiatric emergency call [facility] # Related to Anxiety disorder, unspecified Dietary management e ducation, guidance, and counseling Related to Obesity, unspecified Continue your medica tions as prescribed.Please follow up with NANETTE Ryan in 2-4 weeksYou may come to the psychiatry walk in clinic any Monday morning before your next scheduled appointment if needed, (check in between 8:30 am and 10:30 am)Call [facility] before this if you have questions or need immediate assistance For psychiatric emergency call [facility] # Related to Major depressv disorder, recurrent severe w/o psych features Continue medications as prescribed.Please follow up with NANETTE Ryan in 2-4 weeks.You may come to the psychiatry walk in clinic any Monday morning before your next scheduled appointment if needed, (check in between 8:30 am and 10:30 am)Call [facility] before this if you have questions or need immediate assistance For psychiatric emergency call [facility] # Related to Anxiety disorder, unspecified Take doxycycline 100 mg daily for 1 month then every other day for 1 month then stop Related to Acne try peptobismolBRAT diet. very bland foods in small amounts. bring back stool tests. if persisting at the same severity next monday call our office and let me know as there are other meds we can try while waiting on testing. recheck 1-2 weeks. sooner if needed. Related to Diarrhea Continue Zoloft 50 m gStop amitriptylineContinue with your therapist KendraPlease follow up with NANETTE Ryan as needed in the futureYou may come to the psychiatry walk in clinic any Monday morning before your next scheduled appointment if needed, (check in between 8:30 am and 10:30 am)Call [facility] before this if you have questions or need immediate assistance For psychiatric emergency call [facility] # Related to Anxiety disorder, unspecified Increase Zoloft to 5 0 mgPlease follow up with NANETTE Ryan in one monthContinue to see your therapist [facility] may come to the psychiatry walk in clinic any Monday morning before your next scheduled appointment if needed, (check in between 8:30 am and 10:30 am)Call [facility] before this if you have questions or need immediate assistance For psychiatric emergency call [facility] # Related to Anxiety disorder, unspecified Continue on your med ications as prescribed.Please follow up with NANETTE Ryan in one monthYou may come to the psychiatry walk in clinic any Monday morning before your next scheduled appointment if needed, (check in between 8:30 am and 10:30 am)Call [facility] before this if you have questions or need immediate assistance For psychiatric emergency call [facility] # Related to Anxiety disorder, unspecified Start Zoloft 25 mg d aily in morningsDecrease amitriptyline to 25 mgYou may come to the psychiatry walk in clinic any Monday morning before your next scheduled appointment if needed, (check in between 8:30 am and 10:30 am)Call [facility] before this if you have questions or need immediate assistance For psychiatric emergency call [facility] # Related to Major depressive disorder, single episode, unspecified work on cutting back on saltweight loss and exercise can help with lowering your BP Related to Hypertension please stop the tret inoin cream. continue doxycycline twice dailystop the olay cleanser you have been usingI recommend using a very gentle cleanser, Cerave or Cetaphil. avoid any scrubbingavoid astringents or on-spot acne treatmentSee you in two monthsUse non frangrant moisturizer. See you in one monthprotect your skin from the sun. Related to Acne Assessments Type Assessment Date No Information
--- OUTSIDE RECORDS SUMMARY | 2022-06-22 15:33 | XMS_ITS | Continuity of Care Document ---
Author Name [facility] Address [address] [place] [address] Organization [facility] Address [address] [place] [address] Care Team Providers Care Loan Auditor Name Role Phone PCP, Not Given Primary [...] ORAL TWICE A DAY 30 12March 12, 201 8 Active Problem List Active Problems Medical Problem Onset Date Status Acute maxillary sinusitis Active Inactive/Resolved Problems Medical Problem Onset Date Status Concussion Inactive Procedures No known history of procedures. Relevant Diagnostic Tests and/or Laboratory Data No known relevant diagnostic tests, laboratory data, and/or discharge summary. Advance Directives Advance Directive Response Recorded Date/ Time Do we have a copy on file here at [facility] [place]? No December 17, 2017 2:06pm Does patient have an Advanced Directive? No December 17, 2017 2:06pm Pt has a Living Will? No December 17, 2017 2:06pm Pt has a Power of Director Appointment? No Deco 2017 2:06pm Hospital Discharge Instructions [...] A DAY 20 10 March 12, 2018 Active Encounters Encounter Facility Location Admit/Visit Date Discharge/Departure Date Attending Provider Departed Emergency [facility] March 12, 2018 9:10am March 12, 2018 9:46am Departed Emergency [facility] December 17, 2017 2:01pm December 17, 2017 2:37pm Functional Status No known functional status. Immunizations No known immunizations. Payers Payer Name Policy Type Covered Democrat Covered Democrat Id Relationship Subscriber Subscriber Id COMM UNLISTED INSURANCE Commercial JOSÉ DENNIS [id number] Self/Same as Patient JOSÉ BUTLERMODEDEISY [id number] [employer] Fabiana Carrillo [id number] Child-Son/Daug hter Fabiana Carrillo [id number] SELF PAY Personal Plan of Care Instructions [...] 9:15am Blood Pressure Systolic 102 100-140 Dece 2017 9:15am Blood Pressure Diastolic 78 50-85 Dec 2017 9:15am Body Mass Index 48.8 March 12, 2018 9:15am
--- OUTSIDE RECORDS SUMMARY | 2022-06-22 15:33 | XMS_ITS | Continuity of Care Document ---
Author Name [facility] Address [address] [place] [address] Organization [facility] Address [address] [place] [address] Care Team Providers Care Infection Control Manager Name Role Phone PCP, Not Given Primary Care Physician Unavailab le Allergies, Adverse Reactions, Alerts Allergen Type Severity Reaction Last Updated Verified Status cefazolin Allergy December 17, 2017 Y Active Medications Active Medications Medication Route Start Date Status Sertraline December 17, 2017 Active Spironolactone December 17, 2017 Active Problem List Active Problems Medical Problem Onset Date Status Concussion Active Procedures No known history of procedures. Relevant Diagnostic Tests and/or Laboratory Data No known relevant diagnostic tests, laboratory data, and/or discharge summary. Advance Directives Advance Directive Response Recorded Date/ Time Do we [place] [facility] December 17, 2017 2:06pm Does patient have an Advanced Directive? No December 17, 2017 2:06pm Pt has a Living Will? No December 17, 2017 2:06pm Pt has a Power of Mortgage Or Loan Underwriter? No Octo 2017 2:06pm Hospital Discharge Instructions Additional Discharge Instructions Brain rest as discussed. Tylenol and not Motrin. Drink plenty of fluids and follow-up with your primary care provider if symptoms persist. Follow-up immediately in the ER for any worsening/new symptoms. Instruction/Education Provided Concussio n, Adult (DC) Hospital Discharge Medications Medication Dose Units Route Sig Qty Days Order Date Status Ins tructions Sertraline December 17, 2017 Activ e Spironolactone December 17, 2017 A ctive Encounters Encounter Facility Location Admit/Visit Date Discharge/Departure Date Attending Provider Departed Emergency [facility] December 17, 2017 2:01pm December 17, 2017 2:37pm Functional Status No known functional status. Immunizations No known immunizations. Payers Payer Name Policy Type Covered Constitution Party Covered Constitution Party Id Relationship Subscriber Subscriber Id COMM UNLISTED INSURANCE Commercial JOSÉ DENNIS [id number] Self/Same as Patient JOSÉ DENNIS [id number] [employer] Commercial Fabiana Carrillo [id number] Child-Son/Daug hter Fabiana Carrillo [id number] SELF PAY Personal Plan of Care Instructions Concussion, Adult (DC) Social History Query Response Start Date Stop Date Smoking Status Never smoker Vital Signs Vital Reading Result Reference Range Collection Date/Time Height 5 ft December 17, 2017 2:12pm Weight 113.398 kg December 17, 2017 2:12pm Temperature 98.4 F 97.6 F-99.6 F December 17 8 2:12pm Pulse 73 BPM 60-100 December 17, 2017 2:12pm Respiration 18 RPM 12-24 December 17, 2017 2:12pm Pulse Oximetry 99 % 95-100 December 17 2:12pm Blood Pressure Systolic 125 100-140 Octo miller 2017 2:12pm Blood Pressure Diastolic 75 50-85 Oct lucia 2017 2:12pm Body Mass Index 48.8 December 17 018 2:12pm
--- OUTSIDE RECORDS SUMMARY | 2022-06-22 15:33 | XMS_ITS | Continuity of Care Document ---
Author Name [facility] Address [address] [place] [address] Organization [facility] Address [address] [place] [address] Care Team Providers Care Transmitter Tester Name Role Phone PCP, Not Given Primary Care Physician Unavailab le Allergies, Adverse Reactions, Alerts Allergen Type Severity Reaction Last Updated Verified Status cefazolin Allergy December 17, 2017 Y Active Medications Active Medications Medication Route Start Date Status Sertraline December 17, 2017 Active Spironolactone December 17, 2017 Active Problem List Inactive/Resolved Problems Medical Problem Onset Date Status Concussion Inactive Procedures No known history of procedures. Relevant Diagnostic Tests and/or Laboratory Data No known relevant diagnostic tests, laboratory data, and/or discharge summary. Advance Directives Advance Directive Response Recorded Date/ Time Do we have a copy on file here at [facility] [place] No December 17, 2017 2:06pm Does patient have an Advanced Directive? No December 17, 2017 2:06pm Pt has a Living Will? No December 17, 2017 2:06pm Pt has a Power of [place]? No Octo 2017 2:06pm Hospital Discharge Instructions [...] Date Discharge/Departure Date Attending Provider Departed Emergency [facility] December 17, 2017 2:01pm December 17, 2017 2:37pm Functional Status No known functional status. Immunizations No known immunizations. Payers Payer Name Policy Type Covered Alliance Party Covered Alliance Party Id Relationship Subscriber Subscriber Id COMM UNLISTED INSURANCE Commercial JOSÉ DENNIS [id number] Self/Same as Patient JOSÉ DENNIS [id number] [employer] Commercial [id number] Self/Same as Patient [id number] SELF PAY Personal Plan of Care Instructions [...]
[2022-06-22 22:15] LABS: Anion Gap 7.4 mmol/L (3-11); BUN 9 mg/dL (7-18); CO2 31.6 mmol/L (21.0-32.0); CREATININE 0.7 mg/dL (0.55-1.02); Calcium 9.4 mg/dL (8.5-10.1); Chloride 101 mmol/L (98-107); Estimated GFR 122.25 (mL/min/1.73m2); Glucose 86 mg/dL (74-106); Potassium 3.4 mmol/L (3.5-5.1); Sodium 140 mmol/L (136-145)
== END 2022-06-22 15:32 | disposition home or self-care (01) ==
LOC: NCHCN 15:31
PROVIDERS: Visit Provider Registered Nurse
DX: I10 Essential (primary) hypertension (principal)
CPT/HCPCS: 80048

== ENCOUNTER 2022-08-04 16:09 | Outpatient (REF) | payer BC, SELFPAY ==
[2022-08-04 20:04] LABS: Potassium 3.4 mmol/L (3.5-5.1)
== END 2022-08-04 16:10 | disposition home or self-care (01) ==
LOC: NCHCN 16:09
PROVIDERS: Visit Provider Registered Nurse
DX: E87.6 Hypokalemia (principal)
CPT/HCPCS: 84132

== ENCOUNTER 2023-05-04 15:21 | Outpatient (REF) | payer BC, SELFPAY | END 2023-05-04 15:22 | disposition home or self-care (01) | LOC: NCHCN 15:21 | PROVIDERS: Referring Provider Family Medicine; Visit Provider Family Medicine | DX: N76.0 Acute vaginitis (principal) | CPT/HCPCS: 87480; 87510; 87660 ==

== ENCOUNTER 2023-06-01 18:07 | Outpatient (REF) | payer BC, SELFPAY ==
[2023-06-01 21:53] LABS: Anion Gap 7.3 mmol/L (3-11); BUN 12 mg/dL (7-18); CO2 30.7 mmol/L (21.0-32.0); CREATININE 0.8 mg/dL (0.55-1.02); Calcium 9.9 mg/dL (8.5-10.1); Chloride 100 mmol/L (98-107); Glucose 90 mg/dL (74-106); Potassium 4.7 mmol/L (3.5-5.1); Sodium 138 mmol/L (136-145)
== END 2023-06-01 18:08 | disposition home or self-care (01) ==
LOC: NCHCN 18:07
PROVIDERS: Visit Provider Family Medicine
DX: I10 Essential (primary) hypertension (principal)
CPT/HCPCS: 80048